=== PATIENT | female | born 1950 ===

== ENCOUNTER 2016-07-25 09:42 | Observation (INO) | payer OTHER ==
[~2016-07-25] VITALS: Ht 167.6 cm; Wt 89.3 kg
[~2016-07-25 09:42] MED LIST: ALBUAER2 INH; FLUT0.0529 NAE; MECL1TAB40 PO; PANT40TA PO; RANI300T2 PO
[2016-07-25] MEDS ORDERED: PRLSR20 PO (10:12)
--- NOTE | 2016-07-25 11:05 | EMERGENCY ROOM VISIT NOTE ---
History Report prepared by Gilberto: Hu Mathew Under the Supervision of: Dr. Marco Quinteros D.O. First contact with patient: 10:42 Chief Complaint: CHEST PAIN Stated Complaint: CHEST PAIN, PAIN IN LEFT ARM Nursing Triage Summary: pt reports cp that has been intermittent X 1 month , reports increased sob with exertion and BLE pain and swelling , pt states " I just feel more weak than is normal for me", denies NV pt denies cp at this time History of Present Illness The patient is a 65 year old female who presents to the Emergency Room with complaints of intermittent left-sided chest pain for the past month, which radiates to the left arm. The patient does not currently have the chest pain. She also complains of shortness of breath and currently has a headache. The patient notes that her left leg was swollen this morning. The patient denies any fevers or chills. The patient has not seen her PCP for the pain. The patient has a history of arthritis. She has had left knee surgery. The patient had a stress test some time ago. She denies any history of clots. Source of History: patient Onset: one month ago Position: chest (left) Quality: other (radiating to left arm) Timing: intermittent Associated Symptoms: + SOB, + headache, No chills, No fevers Review of Systems See HPI for pertinent positives & negatives. A total of 10 systems reviewed and were otherwise negative. Past Medical & Surgical Medical Problems: (1) Anemia (2) Anxiety State Nos (3) Asthma (4) GERD (gastroesophageal reflux disease) Surgical Problems: (1) H/O colonoscopy (2) H/O knee surgery (3) History of esophagogastroduodenoscopy (EGD) Family History Hypertension Kidney stone Social History Smoking Status: Never Smoker Alcohol Use: none Drug Use: none Marital Status: single Occupation Status: unemployed Current/Historical Medications Scheduled Omeprazole (Prilosec), 20 MG PO DAILY Allergies Coded Allergies: Celecoxib (Unverified Allergy, Mild, 07/25/16) Physical Exam Vital Signs Date Time Temp Pulse Resp B/P Pulse Ox O2 Delivery O2 Flow Rate FiO2 07/25/16 13:33 73 18 143/89 99 Room Air 07/25/16 12:23 36.5 71 16 130/96 98 Room Air 07/25/16 11:17 76 18 151/88 96 Room Air 07/25/16 09:58 85 07/25/16 09:57 36.5 81 17 151/88 97 Room Air Physical Exam GENERAL: Patient is awake, alert, and in no acute distress. Patient is resting comfortably and showing no signs of anxiety EYES: The conjunctivae are clear. The pupils are round and reactive. EARS, NOSE, MOUTH AND THROAT: The nose is without any evidence of any deformity. Mucous membranes are moist tongue is midline NECK: The neck is nontender and supple. RESPIRATORY: Normal respiratory effort is noted there is no evidence of wheezing rhonchi or rales CARDIOVASCULAR: Regular rate and rhythm noted there no murmurs rubs or gallops normal S1 normal S2 GASTROINTESTINAL: The abdomen is soft. Bowel sounds are present in all quadrants. Abdomen is nontender MUSCULOSKELETAL/EXTREMITIES: There is no evidence of gross deformity full range of motion is noted in the hips and shoulders SKIN: There is no obvious evidence of any rash. There are no petechiae, pallor or cyanosis noted. Trace pedal edema bilaterally, tenderness to the left calf. NEUROLOGIC: Patient is awake alert and oriented x3. Medical Decision & Procedures ER Provider Diagnostic Interpretation: Radiology results as stated below per my review and radiologist interpretation: CHEST ONE VIEW PORTABLE CLINICAL HISTORY: EVALUATE RESPIRATORY DISTRESS. DYSPNEA chest pain COMPARISON STUDY: 12/13/2014 FINDINGS: Fixed hiatal hernia. Lungs are clear. Diaphragms smooth. IMPRESSION: No acute process. Small hiatal hernia. Electronically signed by: Bg Cain M.D. 07/25/2016 11:27 AM Dictated Date/Time: 07/25/2016 11:[address] ANGIOGRAPHY OF THE CHEST, PULMONARY EMBOLUS PROTOCOL CLINICAL HISTORY: Chest pain and shortness of breath. Left arm pain. COMPARISON STUDY: Chest CT October 10, 2007 Chest radiograph July 25, 2016. TECHNIQUE: Following IV administration of 112 mL of Optiray-320, helical axial images of the chest were obtained utilizing the pulmonary embolus protocol. Maximal intensity projections and sagittal and coronal reformats were viewed on an independent 3D workstation. IV contrast was administered without complication. CT DOSE: 490.58 mGycm FINDINGS: No pulmonary emboli are identified. There is no evidence of thoracic aortic dissection. The size of the heart is normal. There is a moderate to large hiatal hernia. There is a partially intrathoracic stomach. Central airways are patent. No pneumothorax or pleural effusion is present. A 5 mm left upper lobe nodule shown on image 126 of 238 is unchanged since prior exams. An 8 mm tubular density within the left upper lobe shown on image 116 has minimally increased in size since prior exam. This could reflect a mucoid impacted bronchus. No consolidation is identified to suggest pneumonia. There is no pneumothorax or pleural effusion. The bony thorax and upper abdomen are unremarkable. IMPRESSION: 1. No pulmonary emboli identified. 2. No acute intrathoracic findings. 3. Moderate to large hiatal hernia. 4. 8 mm tubular density within the left upper lobe which is only minimally increased in size since prior exams. This likely reflects a mucoid impacted bronchus although a follow-up chest CT in 6 months is recommended to ensure stability. ULTRASOUND VENOUS DOPPLER LWR EXT BILA CLINICAL HISTORY: Lower extremity swelling COMPARISON STUDY: No previous studies for comparison. FINDINGS: Real-time and color flow Doppler imaging were performed. Flow was seen within the femoral, popliteal and calf veins with no intraluminal thrombus demonstrated. The saphenous vein is patent. IMPRESSION: No evidence of lower extremity DVT. Electronically signed by: Allen Ngo M.D. 07/25/2016 1:03 PM Dictated Date/Time: 07/25/2016 1:02 PM Laboratory Results Test 07/25/16 10:00 07/25/16 11:11 07/25/16 12:20 Immature Granulocyte % (Auto) 0.2 % White Blood Count 5.45 K/uL (4.8-10.8) Red Blood Count 4.35 M/uL (4.2-5.4) Hemoglobin 10.2 g/dL (12.0-16.0) Hematocrit 32.2 % (37-47) Mean Corpuscular Volume 74.0 fL (80-100) Mean Corpuscular Hemoglobin 23.4 pg (25-34) Mean Corpuscular Hemoglobin Concent 31.7 g/dl (32-36) Platelet Count 303 K/uL (130-400) Mean Platelet Volume 10.0 fL (7.4-10.4) Neutrophils (%) (Auto) 53.4 % Lymphocytes (%) (Auto) 37.2 % Monocytes (%) (Auto) 7.5 % Eosinophils (%) (Auto) 1.1 % Basophils (%) (Auto) 0.6 % Neutrophils # (Auto) 2.91 K/uL (1.4-6.5) Lymphocytes # (Auto) 2.03 K/uL (1.2-3.4) Monocytes # (Auto) 0.41 K/uL (0.11-0.59) Eosinophils # (Auto) 0.06 K/uL (0-0.5) Basophils # (Auto) 0.03 K/uL (0-0.2) Immature Granulocyte # (Auto) 0.01 K/uL (0.00-0.02) Red Blood Cell Morphology Unremarkable Prothrombin Time 10.3 SECONDS (9.0-12.0) Prothromb Time International Ratio 1.0 (0.9-1.1) Activated Partial Thromboplast Time 24.2 SECONDS (21.0-31.0) Partial Thromboplastin Ratio 0.9 Total Bilirubin 0.3 mg/dl (0.2-1) Aspartate Amino Transf (AST/SGOT) 15 U/L (15-37) Alanine Aminotransferase (ALT/SGPT) 18 U/L (12-78) Alkaline Phosphatase 126 U/L (45-117) Total Protein 7.7 gm/dl (6.4-8.2) Albumin 3.1 gm/dl (3.4-5.0) Globulin 4.6 gm/dl (2.5-4.0) Albumin/Globulin Ratio 0.7 (0.9-2) Bedside D-Dimer > 450 ng/mlFEU (0-450) Bedside Troponin I 0.000 ng/ml (0-0.045) Urine Color YELLOW Urine Appearance CLEAR (CLEAR) Urine pH 7.0 (4.5-7.5) Urine Specific [place] 1.014 (1.000-1.030) Urine Protein NEG (NEG) Urine Glucose (UA) NEG (NEG) Urine Ketones NEG (NEG) Urine Occult Blood 1+ (NEG) Urine Nitrite NEG (NEG) Urine Bilirubin NEG (NEG) Urine Urobilinogen NEG (NEG) Urine Leukocyte Esterase NEG (NEG) Urine WBC (Auto) 0 /hpf (0-5) Urine RBC (Auto) 5-10 /hpf (0-4) Urine Hyaline Casts (Auto) 0 /lpf (0-5) Urine Epithelial Cells (Auto) 5-10 /lpf (0-5) Urine Bacteria (Auto) NEG (NEG) Laboratory results per my review. ECG Indication: chest pain Rate (beats per minute): 85 Rhythm: normal sinus Findings: ST depression (Lateral), no ectopy Change: Changes are new compared to December 13, 2014. ED Course 1100: The patient was evaluated in room A10. A complete history and physical examination were performed. 1420: Discuss[facility] the case with [facility] The patient will be evaluated. 1422L Updated the patient. They verbalized understanding and agreement. Medical Decision Prior records/ancillary studies reviewed. Triage Nursing notes reviewed. Additional history obtained from father. The patient's history was concerning for chest pain. Differential diagnosis: Etiologies such as cardiac ischemia, aortic dissection, pulmonary embolism, pneumonia, pneumothorax, musculoskeletal, infections, pericarditis, myocarditis , esophageal rupture, gastrointestinal, as well as others were entertained. The patient is a 65-year-old female who presented to the emergency department for an evaluation of chest pain. The patient had left-sided chest pain which was somewhat worsened with exertion. She also had exertional dyspnea. The patient's EKG did show some nonspecific abnormalities compared to previous. She also had left calf pain but she was not found have signs of thromboembolic disease on ultrasound or CAT scan of the chest. I discussed the patient's laboratory and radiographic studies with him. Given her description of her pain as well as her risk factors I do feel that she could be at risk for coronary artery disease. For this reason I discussed her case with the on-call [facility] group. They have agreed to evaluate the patient in the emergency department for further management and disposition. Consults Time Called: 1410 Consulting Physician: Shante Steeel [facility]C, [facility] Returned Call: 1420 1420: Discussed the case with Shante Steele [facility]C, [facility]. The patient will be evaluated. Impression Primary Impression: Left sided chest pain Additional Impression: Abnormal EKG Scribe Attestation The scribe's documentation has been prepared under my direction and personally reviewed by me in its entirety. I confirm that the note above accurately reflects all work, treatment, procedures, and medical decision making performed by me. Departure Information Dispostion Being Evaluated By Hospitalist Referrals Marlin Rubin PA-C (PCP) Patient Instructions My [facility] Problem Qualifiers
[2016-07-25 11:10] LABS: BASO % 0.6 %; BASO ABS # 0.03 K/uL (0-0.2); EOS % 1.1 %; HEMATOCRIT 32.2 % (37-47); IG% 0.2 %; LYMPH % 37.2 %; LYMPH ABS # 2.03 K/uL (1.2-3.4); MEAN CORPUSCULAR HEMOGLOBIN 23.4 pg (25-34); MEAN CORPUSCULAR HGB CONC 31.7 g/dl (32-36); MONO % 7.5 %; NEUT % 53.4 %; PLATELET COUNT 303 K/uL (130-400); RED BLOOD COUNT 4.35 M/uL (4.2-5.4); WHITE BLOOD COUNT 5.45 K/uL (4.8-10.8)
[2016-07-25 11:17] LABS: BUN/CREATININE RATIO 12.7 (10-20); CALCIUM 8.8 mg/dl (8.5-10.1); CREATININE 0.81 mg/dl (0.60-1.20); POTASSIUM 3.6 mmol/L (3.5-5.1)
[2016-07-25 11:21] LABS: PARTIAL THROMBOPLASTIN RATIO 0.9; PROTHROMBIN TIME (PATIENT) 10.3 SECONDS (9.0-12.0)
[2016-07-25 11:22] LABS: ALB/GLOB RATIO 0.7 (0.9-2); CKMB/CK RATIO 0.8 (0-3.0)
[2016-07-25 11:28] LABS: COMPLETE YES
--- NOTE | 2016-07-25 11:29 | DIAGNOSTIC IMAGING REPORT ---
CHEST ONE VIEW PORTABLE CLINICAL HISTORY: EVALUATE RESPIRATORY DISTRESS. DYSPNEA chest pain COMPARISON STUDY: 12/13/2014 FINDINGS: Fixed hiatal hernia. Lungs are clear. Diaphragms smooth. IMPRESSION: No acute process. Small hiatal hernia. Electronically signed by: Bg Cain M.D. 07/25/2016 11:27 AM Dictated Date/Time: 07/25/2016 11:27 AM
[2016-07-25 12:38] LABS: URINE APPEARANCE CLEAR (CLEAR); URINE BILIRUBIN NEG (NEG); URINE COLOR YELLOW; URINE NITRITE NEG (NEG); URINE SPECIFIC GRAVITY 1.014 (1.000-1.030); UROBILINOGEN NEG (NEG)
[2016-07-25 12:43] LABS: MANUAL MICROSCOPIC REQUIRED? NO; REVIEW REQ? NO
--- NOTE | 2016-07-25 13:04 | DIAGNOSTIC IMAGING REPORT ---
ULTRASOUND VENOUS DOPPLER LWR EXT BILA CLINICAL HISTORY: Lower extremity swelling COMPARISON STUDY: No previous studies for comparison. FINDINGS: Real-time and color flow Doppler imaging were performed. Flow was seen within the femoral, popliteal and calf veins with no intraluminal thrombus demonstrated. The saphenous vein is patent. IMPRESSION: No evidence of lower extremity DVT. Electronically signed by: Allen Ngo M.D. 07/25/2016 1:03 PM Dictated Date/Time: 07/25/2016 1:02 PM
[2016-07-25] MEDS ORDERED: OPTIRAY 320 IV PRN (13:30)
--- NOTE | 2016-07-25 14:02 | DIAGNOSTIC IMAGING REPORT ---
CT ANGIOGRAPHY OF THE CHEST, PULMONARY EMBOLUS PROTOCOL CLINICAL HISTORY: Chest pain and shortness of breath. Left arm pain. COMPARISON STUDY: Chest CT October 10, 2007 Chest radiograph July 25, 2016. TECHNIQUE: Following IV administration of 112 mL of Optiray-320, helical axial images of the chest were obtained utilizing the pulmonary embolus protocol. Maximal intensity projections and sagittal and coronal reformats were viewed on an independent 3D workstation. IV contrast was administered without complication. CT DOSE: 490.58 mGycm FINDINGS: No pulmonary emboli are identified. There is no evidence of thoracic aortic dissection. The size of the heart is normal. There is a moderate to large hiatal hernia. There is a partially intrathoracic stomach. Central airways are patent. No pneumothorax or pleural effusion is present. A 5 mm left upper lobe nodule shown on image 126 of 238 is unchanged since prior exams. An 8 mm tubular density within the left upper lobe shown on image 116 has minimally increased in size since prior exam. This could reflect a mucoid impacted bronchus. No consolidation is identified to suggest pneumonia. There is no pneumothorax or pleural effusion. The bony thorax and upper abdomen are unremarkable. IMPRESSION: 1. No pulmonary emboli identified. 2. No acute intrathoracic findings. 3. Moderate to large hiatal hernia. 4. 8 mm tubular density within the left upper lobe which is only minimally increased in size since prior exams. This likely reflects a mucoid impacted bronchus although a follow-up chest CT in 6 months is recommended to ensure stability. Electronically signed by: Noah Perla M.D. 07/25/2016 2:00 PM Dictated Date/Time: 07/25/2016 1:52 PM
[2016-07-25] MEDS ORDERED: NITROGLYCERIN 0.4 MG SL PER TAB CHARGE SL PRN (15:00)
[2016-07-25] MEDS ORDERED: ONDANSETRON INJ 2 MG/ML 2 ML VIAL IV PRN (15:00)
[2016-07-25] MEDS ORDERED: ACETAMINOPHEN 325 MG TAB PO PRN (15:00)
[2016-07-25] MEDS ORDERED: ASPIRIN 81 MG CHEW PO STA (15:10)
--- NOTE | 2016-07-25 15:16 | History and Physical ---
History & Physical Date & Time of Service: Jul 25, 2016 at 15:05 Chief Complaint: Chest Pain, Pain In Left Arm Primary Care Physician: Marlin Rubin PA-C History of Present Illness Source: patient, clinic records, hospital records Patient seen and examined. 65 year old female with PMHx of GERD, Anemia, and other problems listed below presents to the ED complaining of chest pain x 1 month. History is somewhat unclear but patient states she gets some pain in her left arm at night with radiation into the chest. She states she sleeps on her left side so she is not sure if that is what causes it. She states she also has some SOB, and orthopnea. She reports calf pain and that she had peripheral edema a few weeks ago. She reports she came to the ED today because her family bugged her too, she denies any new symptoms today. She denies fevers, chills, URI symptoms, palpitations, nausea, vomiting, diarrhea, dysuria. She reports an allergy to Celebrex which she states she felt like it made her dehydrated, she denies anaphylactic reaction to Celebrex. She states she has never previously taken aspirin. She reports her mother had heart problems beginning in her 80s. She personally denies any heart problems. In the ED VS are stable, Rafaela are negative x 1, EKG was nonspecific, Ddimer was elevated by CTA chest and doppler US BLLE were negative for acute abnormalities. The patient is resting comfortably without chest pain. She will be observed for further workup and treatment. Past Medical/Surgical History Medical Problems: (1) Anemia Status: Chronic (2) Anxiety State Nos Status: Chronic (3) Asthma Status: Chronic (4) GERD (gastroesophageal reflux disease) Status: Chronic Surgical Problems: (1) H/O colonoscopy Status: Chronic (2) H/O knee surgery Status: Chronic (3) History of esophagogastroduodenoscopy (EGD) Status: Chronic Family History Hypertension Kidney stone Social History Smoking Status: Never Smoker Alcohol Use: none Drug Use: none Marital Status: single Housing status: lives alone Occupational Status: unemployed Multi-Drug Resistant Organisms History of MDRO: No Allergies Coded Allergies: Celecoxib (Unverified Allergy, Mild, 07/25/16) Home Medications Scheduled Omeprazole (Prilosec), 20 MG PO DAILY Review of Systems See above for pertinent positives & negatives. A total of 10 systems reviewed and were otherwise negative. Physical Exam Vital Signs Date Time Temp Pulse Resp B/P Pulse Ox O2 Delivery O2 Flow Rate FiO2 07/25/16 13:33 73 18 143/89 99 Room Air 07/25/16 12:23 36.5 71 16 130/96 98 Room Air 07/25/16 11:17 76 18 151/88 96 Room Air 07/25/16 09:58 85 07/25/16 09:57 36.5 81 17 151/88 97 Room Air General Appearance: + pertinent finding (Pleasant WD/WN 65 year old female lying in bed in NAD ) Head: normocephalic, atraumatic Eyes: PERRL, EOMI, sclerae normal ENT: normal ENT inspection, hearing grossly normal, pharynx normal Neck: supple, no JVD, trachea midline Respiratory/Chest: chest non-tender, lungs clear, normal breath sounds, no respiratory distress, no accessory muscle use Cardiovascular: regular rate, rhythm, no gallop, no JVD, no murmur, normal peripheral pulses Abdomen/GI: normal bowel sounds, non tender, soft Back: normal inspection, no muscle spasm Extremities/Musculoskelatal: normal capillary refill, + calf tenderness (BL), + pedal edema (trace) Neurologic/Psych: alert, oriented x 3, + pertinent finding (no focal deficits ) Skin: normal color, warm/dry, no rash Lymphatic: no adenopathy Diagnostics Laboratory Results Results Past 24 Hours Test 07/25/16 10:00 07/25/16 11:11 07/25/16 12:20 Range/Units White Blood Count 5.45 4.8-10.8 K/uL Red Blood Count 4.35 4.2-5.4 M/uL Hemoglobin 10.2 12.0-16.0 g/dL Hematocrit 32.2 37-47 % Mean Corpuscular Volume 74.0 80-100 fL Mean Corpuscular Hemoglobin 23.4 25-34 pg Mean Corpuscular Hemoglobin Concent 31.7 32-36 g/dl Platelet Count 303 130-400 K/uL Mean Platelet Volume 10.0 7.4-10.4 fL Neutrophils (%) (Auto) 53.4 % Lymphocytes (%) (Auto) 37.2 % Monocytes (%) (Auto) 7.5 % Eosinophils (%) (Auto) 1.1 % Basophils (%) (Auto) 0.6 % Neutrophils # (Auto) 2.91 1.4-6.5 K/uL Lymphocytes # (Auto) 2.03 1.2-3.4 K/uL Monocytes # (Auto) 0.41 0.11-0.59 K/uL Eosinophils # (Auto) 0.06 0-0.5 K/uL Basophils # (Auto) 0.03 0-0.2 K/uL RDW Standard Deviation 40.0 36.4-46.3 fL RDW Coefficient of Variation 14.8 11.5-14.5 % Immature Granulocyte % (Auto) 0.2 % Immature Granulocyte # (Auto) 0.01 0.00-0.02 K/uL Red Blood Cell Morphology Unremarkable Prothrombin Time 10.3 9.0-12.0 SECONDS Prothromb Time International Ratio 1.0 0.9-1.1 Activated Partial Thromboplast Time 24.2 21.0-31.0 SECONDS Partial Thromboplastin Ratio 0.9 Sodium Level 141 136-145 mmol/L Potassium Level 3.6 3.5-5.1 mmol/L Chloride Level 105 98-107 mmol/L Carbon Dioxide Level 28 21-32 mmol/L Anion Gap 8.0 3-11 mmol/L Blood Urea Nitrogen 10 7-18 mg/dl Creatinine 0.81 0.60-1.20 mg/dl Est Creatinine Clear Calc Drug Dose 79.9 ml/min Estimated GFR () 88.3 Estimated GFR (Non- 76.2 BUN/Creatinine Ratio 12.7 10-20 Random Glucose 108 70-99 mg/dl Calcium Level 8.8 8.5-10.1 mg/dl Total Bilirubin 0.3 0.2-1 mg/dl Aspartate Amino Transf (AST/SGOT) 15 15-37 U/L Alanine Aminotransferase (ALT/SGPT) 18 12-78 U/L Alkaline Phosphatase 126 45-117 U/L Total Creatine Kinase 159 26-192 U/L Creatine Kinase MB 1.3 0.5-3.6 ng/ml Creatine Kinase MB Ratio 0.8 0-3.0 Total Protein 7.7 6.4-8.2 gm/dl Albumin 3.1 3.4-5.0 gm/dl Globulin 4.6 2.5-4.0 gm/dl Albumin/Globulin Ratio 0.7 0.9-2 Bedside D-Dimer > 450 0-450 ng/mlFEU Bedside Troponin I 0.000 0-0.045 ng/ml Urine Color YELLOW Urine Appearance CLEAR CLEAR Urine pH 7.0 4.5-7.5 Urine Specific [place] 1.014 1.000-1.030 Urine Protein NEG NEG Urine Glucose (UA) NEG NEG Urine Ketones NEG NEG Urine Occult Blood 1+ NEG Urine Nitrite NEG NEG Urine Bilirubin NEG NEG Urine Urobilinogen NEG NEG Urine Leukocyte Esterase NEG NEG Urine WBC (Auto) 0 0-5 /hpf Urine RBC (Auto) 5-10 0-4 /hpf Urine Hyaline Casts (Auto) 0 0-5 /lpf Urine Epithelial Cells (Auto) 5-10 0-5 /lpf Urine Bacteria (Auto) NEG NEG Diagnostic Radiology CTA CHEST Per radiologist read: IMPRESSION: 1. No pulmonary emboli identified. 2. No acute intrathoracic findings. 3. Moderate to large hiatal hernia. 4. 8 mm tubular density within the left upper lobe which is only minimally increased in size since prior exams. This likely reflects a mucoid impacted bronchus although a follow-up chest CT in 6 months is recommended to ensure stability. CXR Per radiologist read: IMPRESSION: No acute process. Small hiatal hernia. BLLE DOPPLER US Per radiologist read: IMPRESSION: No evidence of lower extremity DVT. EKG NSR 85 BPM, QTc 418, nonspecific T wave changes Impression Assessment and Plan 65 year old female presents to the ED with a month of chest pain, SOB CHEST PAIN R/O ACS -Observation in tele -First set of CE negative in ED -Risk factors:age, obesity -Serial Rafaela and EKGs -Fasting lipid panel in AM -Echo pending to r/o heart wall abnormality -ASA daily - states her Celebrex allergy is feeling like she is dehydrated, has never taken Aspirin previously -Nitro chest pain -Add Atorvastatin 40mg daily for plaque stabilization -stress test in AM if workup negative -AHA diet npo aftermidnight for stress test -CBC, PRP, Mg daily -VSS stable, monitor in tele ELEVATED DDIMER -Doppler US, and CTA chest negative GERD -continue PPI ANEMIA -hgb stable -follow H&H daily LUNG TUBULAR DENSITY -patient reports she had CT scans every 6 months for many years, none recently -followup with PCP DVT PROPHYLAXIS: Sq Lovenox CODE STATUS: FULL CODE DISPO:observation pending further workup Patient seen in collaboration with Dr. Yip Agree with above H and P.65f presents with left arm pain radiating to left chest for about a month. Lately getting worse.Comes goes anytime.Denies cough. No sob. No fevers. No sweating.HAs some calf pain . Also complains of generalized weakness and muscle pains. p/e Ge not in distress Cvs s1 and s2 heard no murmurs Rs cta b/l no added sounds Abd benign Stoner Hand non focal Ext pedal edema present a/p Chest pain rule out acs serial CE and echo Generalized weakness lower extremity edema follow echo follow tsh levels VTE Prophylaxis VTE Risk Assessment Done? Y/N: Yes Risk Level: Moderate
[2016-07-25] MEDS ORDERED: IV FLUIDS COMPLETED PRN (16:30)
[2016-07-25 16:37] LABS: CKMB/CK RATIO 0.8 (0-3.0)
[2016-07-25] MEDS: ATORVASTATIN 40 MG TAB PO ONE ×2 (17:00→19:02)
[2016-07-25 17:21] VITALS: BP 141/72; PULSE 81; TEMP 36.6; Ht 167.6 cm; Wt 89.3 kg
[2016-07-25 17:23] VITALS: O2SAT 95
[2016-07-25] MEDS: ENOXAPARIN 40 MG/0.4 ML SYR SC SCH ×2 (19:02→19:11)
[2016-07-25 19:39] VITALS: BP 151/81; PULSE 86; TEMP 36.6; O2SAT 98
[2016-07-25 20:15] VITALS: O2SAT 98
[2016-07-25 23:20] VITALS: TEMP 36.6
[2016-07-25 23:20] LABS: CKMB/CK RATIO 0.9 (0-3.0)
[2016-07-26 05:17] VITALS: BP 117/72; PULSE 78; TEMP 36.2; O2SAT 96
[2016-07-26 06:59] LABS: HEMATOCRIT 32.4 % (37-47); MEAN CELL VOLUME 73.8 fL (80-100); MEAN CORPUSCULAR HEMOGLOBIN 23.2 pg (25-34); MEAN CORPUSCULAR HGB CONC 31.5 g/dl (32-36); MEAN PLATELET VOLUME 9.5 fL (7.4-10.4); PLATELET COUNT 284 K/uL (130-400); RED BLOOD COUNT 4.39 M/uL (4.2-5.4); WHITE BLOOD COUNT 6.22 K/uL (4.8-10.8)
[2016-07-26 07:30] LABS: BUN/CREATININE RATIO 12.8 (10-20); CALCIUM 8.9 mg/dl (8.5-10.1); CREATININE 0.85 mg/dl (0.60-1.20); MAGNESIUM 2.1 mg/dl (1.8-2.4); POTASSIUM 3.9 mmol/L (3.5-5.1)
[2016-07-26 07:40] LABS: THYROID STIMULATING HORMONE 2.56 uIu/ml (0.300-4.500)
[2016-07-26 07:51] VITALS: BP 129/79; PULSE 75; TEMP 36.6; O2SAT 96
[2016-07-26] MEDS ORDERED: ATORVASTATIN 40 MG TAB PO SCH (09:00)
[2016-07-26] MEDS ORDERED: ASPIRIN 81 MG ECTAB PO SCH (09:00)
[2016-07-26] MEDS ORDERED: PANTOprazole SOD 40 MG TAB PO SCH (09:00)
[2016-07-26] MEDS ORDERED: METOPROLOL TARTRATE 1 MG/ML VIAL ONE (11:24)
[2016-07-26] MEDS ORDERED: DOBUTamine HCL 12.5 MG/ML 20 ML VIAL ONE (11:24)
[2016-07-26] MEDS ORDERED: ATROPINE SULFATE 0.1 MG/ML 5ML SYR ONE (11:24)
[2016-07-26] MEDS ORDERED: PERFLUTREN LIPID MICROSPHERE (DEFINITY) IV ONE (12:21)
[2016-07-26 12:45] VITALS: BP 138/82; PULSE 83; TEMP 36.3; O2SAT 93
[2016-07-26 15:09] VITALS: BP 146/76; PULSE 87; TEMP 36.4; O2SAT 96
--- NOTE | 2016-07-26 15:23 | Discharge Instructions ---
Discharge Instructions Admission Reason for Admission: Left Sided Chest Pain Discharge Discharge Diagnosis / Problem: Atypical chest pain Discharge Goals Goal(s): Diagnostic testing Activity Recommendations Activity Limitations: resume your previous activity . Instructions / Follow-Up Instructions / Follow-Up Please follow up with Family Medicine Dr. Domínguez on August 01 at 3:10pm. Current Hospital Diet Patient's current hospital diet: AHA Diet (Heart Healthy) Discharge Diet Recommended Diet: AHA Diet (Heart Healthy) Procedures Procedures Performed: Dobutamine stress echo Pending Studies Studies pending at discharge: no Laboratory Results Lipid Panel Test 07/26/16 06:22 Range/Units Triglycerides Level 112 0-150 mg/dl Cholesterol Level 191 0-200 mg/dl HDL Cholesterol 64 mg/dl Cholesterol/HDL Ratio 3.0 LDL Cholesterol, Calculated 105 mg/dl Medical Emergencies . Who to Call and When: Medical Emergencies: If at any time you feel your situation is an emergency, please call 911 immediately. . Non-Emergent Contact Non-Emergency issues call your: Primary Care Provider . . "Provider Documentation" section prepared by Ronna Krishnamurthy. VTE Core Measure Inpt VTE Proph given/why not?: Refusal of treatmnt by pt
[2016-07-26 15:30] VITALS: BP 146/76; PULSE 87; TEMP 36.4; O2SAT 96
--- NOTE | 2016-07-26 16:50 | DOBUTAMINE ECHO ---
*NOTICE TO RECEIVING CONSTITUTION PARTY AGENCY This information is strictly Confidential and protected under [place] law. [place] law prohibits you from making any further disclosure of this information unless further disclosure is expressly permitted by the written consent of the person to whom it pertains or is authorized by law. A general authorization for the release of medical or other information is not sufficient for this purpose. Hospital accepts no responsibility if the information is made available to any other person, INCLUDING THE PATIENT. Interpretation Summary * Name: JAMARI MARTINEZ Study Date: 07/26/2016 10:43 AM BP: 144/73 mmHg * Patient Location: [facility] HR: 74 * : 1950 (M/d/yyyy) Gender: Female Height: 65 in * Age: 65 yrs Ethnicity: DC Weight: 207 lb * Ordering Physician: Shante Steele * Performed By: Fernanda Andrews * * Reason For Study: Chest Pain * BSA: 2.0 m2 * -- Conclusions -- * STRESS STUDY: * Normal pharmacologic stress echocardiogram. * No echocardiographic or ECG evidence of myocardial ischemia having achieved heart rate adequate for diagnostic purposes. * RESTING STUDY: * There is no significant valvular heart disease. * There is mild concentric left ventricular hypertrophy. Procedure Details * ECHOEX, CPT #06829 * ECHO DOPPLER, CPT #64816 * ECHO COLOR FLOW, CPT #30979 * A contrast injection of Definity was performed to improve assessment of LV function. * Contrast was injected into an intravenous site in the right arm. * One vial of Definity ultrasound contrast was diluted in normal saline to a total volume of 10 ml. A total of '7' ml of solution was administered during imaging. * Lot # [id number] of Definity utilized for procedure. * Expiration date 07/22. * The attending nurse who injected the contrast agent was UTE WAY RN. Left Ventricle * The left ventricle is normal in size. * There is mild concentric left ventricular hypertrophy. * Left ventricular systolic function is normal. * Ejection Fraction = 60-65%. * Resting wall motion: Normal. Stress wall motion: Appropriate increase in Left ventricular systolic function and decrease in cavity size. No stress induced segmental wall motion abnormalities. Right Ventricle * The right ventricle is normal in size and function. Atria * The left atrial size is normal. * Right atrial size is normal. * No ASD detected; PFO is not assessed. Mitral Valve * The mitral valve is normal. * There is no mitral valve stenosis. * There is trace mitral regurgitation. Tricuspid Valve * The tricuspid valve is normal. * There is no tricuspid stenosis. * There is trace tricuspid regurgitation. Aortic Valve * The aortic valve is trileaflet. * No hemodynamically significant valvular aortic stenosis. * No aortic regurgitation is present. Pulmonic Valve * The pulmonic valve is not well visualized. Great Vessels * The aortic root is normal size. Pericardium * There is no pericardial effusion. Stress Parameters * Normal baseline electrocardiogram. * The stress ECG response was normal * The stress portion of this study was personally supervised by the undersigned interpreting physician. * Rest heart rate was '74' BPM. * Rest blood pressure was '144/73' * Maximum heart rate achieved was 148 bpm. * Maximum heart rate was 95 % of maximum age-predicted heart rate. * Maximum blood pressure was '178/85' * Total exercise time was '8:29' * Maximum Dobutamine infusion rate was '20' mcg/kg/min. * A total of 0.25 mg of intravenous Atropine was used to supplement Dobutamine for heart rate response. * Dobutamine infusion was terminated due to achieving target heart rate * A total of 5 mg of IV Metoprolol was administered to reverse Dobutamine-induced tachycardia. * The patient exhibited headache during the drug infusion. * Normal blood pressure response to exercise. * Test terminated due to target heart rate achieved. Left Ventricular Diastolic Function * Grade I diastolic dysfunction, (abnormal relaxation pattern). MMode 2D Measurements and Calculations IVSd 1.2 cm IVSs 1.9 cm LVIDd 2.9 cm LVIDs 1.9 cm LVPWd 1.3 cm LVPWs 1.9 cm IVS/LVPW 0.94 FS 36.9 % EDV(Teich) 33.3 ml ESV(Teich) 10.5 ml EF(Teich) 68.5 % EDV(cubed) 25.4 ml ESV(cubed) 6.4 ml EF(cubed) 74.9 % % IVS thick 55.8 % % LVPW thick 40.3 % LV mass(C)d 119.2 grams LV mass(C)dI 59.4 grams/m\S\2 LV mass(C)s 146.5 grams LV mass(C)sI 73.0 grams/m\S\2 CO(Teich) 1.7 l/min CI(Teich) 0.84 l/min/m\S\2 SV(Teich) 22.8 ml SI(Teich) 11.4 ml/m\S\2 CO(cubed) 1.4 l/min CI(cubed) 0.70 l/min/m\S\2 SV(cubed) 19.0 ml SI(cubed) 9.5 ml/m\S\2 ACS 1.1 cm LA dimension 3.2 cm asc Aorta Diam 3.0 cm LVOT diam 1.8 cm LVOT area 2.5 cm\S\2 LVAd ap4 22.9 cm\S\2 LVLd ap4 7.9 cm EDV(MOD-sp4) 55.5 ml LVAs ap4 10.2 cm\S\2 LVLs ap4 5.5 cm ESV(MOD-sp4) 15.9 ml EF(MOD-sp4) 71.4 % LVAd ap2 20.6 cm\S\2 LVLd ap2 7.5 cm EDV(MOD-sp2) 47.7 ml LVAs ap2 8.6 cm\S\2 LVLs ap2 5.0 cm ESV(MOD-sp2) 13.1 ml EF(MOD-sp2) 72.5 % CO(MOD-sp4) 2.9 l/min CI(MOD-sp4) 1.5 l/min/m\S\2 SV(MOD-sp4) 39.6 ml SI(MOD-sp4) 19.7 ml/m\S\2 CO(MOD-sp2) 2.6 l/min CI(MOD-sp2) 1.3 l/min/m\S\2 SV(MOD-sp2) 34.6 ml SI(MOD-sp2) 17.2 ml/m\S\2 Doppler Measurements and Calculations MV E max carmel 88.8 cm/sec MV A max carmel 114.0 cm/sec MV E/A 0.78 MV V2 max 119.3 cm/sec MV max PG 5.7 mmHg MV V2 mean 65.9 cm/sec MV mean PG 2.0 mmHg MV V2 VTI 27.9 cm MV dec time 0.25 sec Ao V2 max 141.6 cm/sec Ao max PG 8.0 mmHg Ao max PG (full) 4.3 mmHg DANIELLE(V,A) 1.7 cm\S\2 DANIELLE(V,D) 1.7 cm\S\2 LV V1 max PG 3.8 mmHg LV V1 max 97.0 cm/sec PA V2 max 88.8 cm/sec PA max PG 3.2 mmHg PI end-d carmel 96.0 cm/sec
--- NOTE | 2016-07-26 19:54 | Discharge Summary ---
Discharge Summary Date of Service Jul 26, 2016. Discharge Summary Admission Date: Jul 25, 2016 at 14:59 Discharge Date: Jul 26, 2016 Discharge Disposition: Home Principal Diagnosis: Atypical chest pain Procedures: Venous doppler No evidence of lower extremity DVT. CT chest 1. No pulmonary emboli identified. 2. No acute intrathoracic findings. 3. Moderate to large hiatal hernia. 4. 8 mm tubular density within the left upper lobe which is only minimally increased in size since prior exams. This likely reflects a mucoid impacted bronchus although a follow-up chest CT in 6 months is recommended to ensure stability. Dobutamine stress echo * STRESS STUDY: * Normal pharmacologic stress echocardiogram. * No echocardiographic or ECG evidence of myocardial ischemia having achieved heart rate adequate for diagnostic purposes. * RESTING STUDY: * There is no significant valvular heart disease. * There is mild concentric left ventricular hypertrophy. Medication Reconciliation Continued Medications: Omeprazole (Prilosec) 20 Mg Capcr 20 MG PO DAILY, CAP Admission Information HPI (per Admitting provider): Patient seen and examined. 65 year old female with PMHx of GERD, Anemia, and other problems listed below presents to the ED complaining of chest pain x 1 month. History is somewhat unclear but patient states she gets some pain in her left arm at night with radiation into the chest. She states she sleeps on her left side so she is not sure if that is what causes it. She states she also has some SOB, and orthopnea. She reports calf pain and that she had peripheral edema a few weeks ago. She reports she came to the ED today because her family bugged her too, she denies any new symptoms today. She denies fevers, chills, URI symptoms, palpitations, nausea, vomiting, diarrhea, dysuria. She reports an allergy to Celebrex which she states she felt like it made her dehydrated, she denies anaphylactic reaction to Celebrex. She states she has never previously taken aspirin. She reports her mother had heart problems beginning in her 80s. She personally denies any heart problems. In the ED VS are stable, Rafaela are negative x 1, EKG was nonspecific, Ddimer was elevated by CTA chest and doppler US BLLE were negative for acute abnormalities. The patient is resting comfortably without chest pain. She will be observed for further workup and treatment. Physical Exam (per Admitting): General Appearance: + pertinent finding (Pleasant WD/WN 65 year old female lying in bed in NAD ) Head: normocephalic, atraumatic Eyes: PERRL, EOMI, sclerae normal ENT: normal ENT inspection, hearing grossly normal, pharynx normal Neck: supple, no JVD, trachea midline Respiratory/Chest: chest non-tender, lungs clear, normal breath sounds, no respiratory distress, no accessory muscle use Cardiovascular: regular rate, rhythm, no gallop, no JVD, no murmur, normal peripheral pulses Abdomen/GI: normal bowel sounds, non tender, soft Back: normal inspection, no muscle spasm Extremities/Musculoskelatal: normal capillary refill, + calf tenderness (BL) , + pedal edema (trace) Neurologic/Psych: alert, oriented x 3, + pertinent finding (no focal deficits ) Skin: normal color, warm/dry, no rash Lymphatic: no adenopathy Hospital Course Patient was admitted with a month long h/o atypical chest pain. Due to elevated d-dimer on admission, venous doppler was done and negative for DVT and CT chest was done and was negative for PE. ACS r/o was negative. Dobutamine stress echo was negative. Echo did show mild concentric LVH. Cardiology recommended close monitoring of patient's outpatient blood pressure. Encouraged patient to adhere to heart healthy diet. Patient deemed stable for discharge with Family Medicine follow up. PE on discharge: General- awake; alert; NAD Eyes- EOMI; no scleral icterus Neck- no stridor; trachea midline Lungs- CTA bilaterally; no wheezes/crackles Heart- RRR; no m/r/g Abdomen- soft; NTND; nBS Back- no gross abnormalities Extremities- no c/c/e; no deformity Neuro- no gross focal deficits Skin- no appreciable rash . Total time spent on discharge = This includes examination of the patient, discharge planning, medication reconciliation, and communication with other providers. Discharge Instructions Discharge Instructions Admission Reason for Admission: Left Sided Chest Pain Discharge Discharge Diagnosis / Problem: Atypical chest pain Discharge Goals Goal(s): Diagnostic testing Activity Recommendations Activity Limitations: resume your previous activity . Instructions / Follow-Up Instructions / Follow-Up Please follow up with Family Medicine Dr. Domínguez on August 01 at 3:10pm. Current Hospital Diet Patient's current hospital diet: AHA Diet (Heart Healthy) Discharge Diet Recommended Diet: AHA Diet (Heart Healthy) Procedures Procedures Performed: Dobutamine stress echo Pending Studies Studies pending at discharge: no Laboratory Results Lipid Panel Test 07/26/16 06:22 Range/Units Triglycerides Level 112 0-150 mg/dl Cholesterol Level 191 0-200 mg/dl HDL Cholesterol 64 mg/dl Cholesterol/HDL Ratio 3.0 LDL Cholesterol, Calculated 105 mg/dl Medical Emergencies . Who to Call and When: Medical Emergencies: If at any time you feel your situation is an emergency, please call 911 immediately. . Non-Emergent Contact Non-Emergency issues call your: Primary Care Provider . . "Provider Documentation" section prepared by Ronna Krishnamurthy. VTE Core Measure Inpt VTE Proph given/why not?: Refusal of treatmnt by pt Additional Copies To Marlin Rubin PA-C, Shane D., D.O.
[2017-01-15] MEDS ORDERED: FRRS300 PO (16:43)
== END 2016-07-26 15:45 | disposition home or self-care (01) ==
LOC: ENRESERVDT → ENRESERVTM → C.EDB 09:44 → C.MED 14:59
PROVIDERS: ADMIT Internal Medicine; ATTEND Internal Medicine
DX: R07.89 Other chest pain (principal); R53.1 Weakness; R79.89 Other specified abnormal findings of blood chemistry; R94.31 Abnormal electrocardiogram [ECG] [EKG]; K21.9 Gastro-esophageal reflux disease without esophagitis; D64.9 Anemia, unspecified; J45.909 Unspecified asthma, uncomplicated; E66.9 Obesity, unspecified; Z82.49 Family history of ischemic heart disease and other diseases of the circulatory system; Z84.1 Family history of disorders of kidney and ureter

== ENCOUNTER 2017-01-12 10:23 | Inpatient (IN) | payer OTHER ==
[~2017-01-12] VITALS: Ht 165.1 cm; Wt 88.0 kg
[2017-01-12] VITALS (8 sets, daily range): BP systolic 114–149; BP diastolic 68–84; PULSE 77–83; TEMP 36.4–36.9; O2SAT 96–98; Ht 165.1 cm; Wt 88.0 kg
[~2017-01-12 10:23] MED LIST changes: -ALBUAER2 INH; -FLUT0.0529 NAE; -MECL1TAB40 PO; -PANT40TA PO; +PRLSR20 PO; -RANI300T2 PO
[2017-01-12 11:29] LABS: ALT/SGPT 16 U/L (12-78); AST/SGOT 15 U/L (15-37); BLOOD UREA NITROGEN 9 mg/dl (7-18); BUN/CREATININE RATIO 11.1 (10-20); CALCIUM 9.1 mg/dl (8.5-10.1); CARBON DIOXIDE 27 mmol/L (21-32); CHLORIDE 107 mmol/L (98-107); CREATININE 0.83 mg/dl (0.60-1.20); GLUCOSE 112 mg/dl (70-99); POTASSIUM 3.6 mmol/L (3.5-5.1); SODIUM 140 mmol/L (136-145)
[2017-01-12 11:31] LABS: PROTHROMBIN TIME (PATIENT) 10.4 SECONDS (9.0-12.0)
[2017-01-12 11:32] LABS: ALKALINE PHOSPHATASE 115 U/L (45-117)
[2017-01-12 11:54] LABS: HEMATOCRIT 27.1 % (37-47); MEAN CELL VOLUME 68.8 fL (80-100); MEAN CORPUSCULAR HEMOGLOBIN 21.1 pg (25-34); MEAN CORPUSCULAR HGB CONC 30.6 g/dl (32-36); MEAN PLATELET VOLUME 8.7 fL (7.4-10.4); PLATELET COUNT 341 K/uL (130-400); RED BLOOD COUNT 3.94 M/uL (4.2-5.4); WHITE BLOOD COUNT 6.16 K/uL (4.8-10.8)
--- NOTE | 2017-01-12 11:54 | DIAGNOSTIC IMAGING REPORT ---
CHEST 2 VIEWS ROUTINE HISTORY: 66 years-old Female acute shortness of breath and lightheadedness. COMPARISON: Chest radiograph and chest CT 07/25/2016 TECHNIQUE: Frontal and lateral views of the chest FINDINGS: Small hiatal hernia with partially intrathoracic stomach is redemonstrated. Cardiac silhouette is within normal limits. There is atherosclerosis of the aorta. No pneumothorax, pleural effusion or focal airspace consolidation. The bones are grossly intact. There is mild convex left curvature of the lumbar spine. Multilevel endplate spurring is seen throughout the spine as well. IMPRESSION: 1. No acute cardiopulmonary process. No evidence of focal pneumonia. 2. Small hiatal hernia with partially intrathoracic stomach redemonstrated. The above report was generated using voice recognition software. It may contain grammatical, syntax or spelling errors. Electronically signed by: Ajay Echavarria M.D. 01/12/2017 11:52 AM Dictated Date/Time: 01/12/2017 11:50 AM
[2017-01-12 11:58] LABS: ANISOCYTOSIS PRESENT; BASO % 0.2 %; BASO ABS # 0.01 K/uL (0-0.2); COMPLETE YES; EOS % 1.1 %; IG% 0.3 %; LYMPH % 30.8 %; MICROCYTOSIS PRESENT; NEUT % 60.6 %
[2017-01-12] MEDS ORDERED: VNTHFA/IN INH (11:59)
[2017-01-12] MEDS ORDERED: FLNIN/ INH (12:01)
[2017-01-12] MEDS ORDERED: ONDANSETRON INJ 2 MG/ML 2 ML VIAL IV PRN (14:00)
[2017-01-12] MEDS ORDERED: ACETAMINOPHEN 325 MG TAB PO PRN (14:00)
[2017-01-12] MEDS ORDERED: ALBUTEROL HFA 8 GM INHALER INH PRN (14:15)
[2017-01-12] MEDS ORDERED: PANTOprazole INJ 40 MG in SYRINGE 0 ML IV ONE (14:15)
[2017-01-12] MEDS ORDERED: IV FLUIDS COMPLETED PRN (14:15)
--- NOTE | 2017-01-12 14:22 | History and Physical ---
History & Physical Date & Time of Service: Jan 12, 2017 at 14:03 Chief Complaint: Sob, Lightheaded, Anemia Primary Care Physician: Ciarra Brunson, History of Present Illness Source: patient, clinic records, hospital records 66 yo F with long-standing anemia symptoms, undergoing outpatient workup, who presents with worsening shortness of breath and muscle spasms in her legs as well as significant weakness. She states that she has had these symptoms for some time, including lightheadedness, but recently she became worse. Per record review her Hb trend has been 12/2014-12.5, 07/2016-10.2, 01/18-8.3. She denies any bleeding or bruising. Ferritin is very low and outpatient labwork reflects iron deficiency. She is scheduled for an outpatient endoscopy with Dr. Romna in Feb 2017, and has not taken the iron supplements as prescribed as she has been trying to eat more iron-rich foods instead. She admits to PICA symptoms including eating ice and rice recently. She admits to a h/o H pylori infection in the past. Recent H pylorii stool test was negative as outpatient. Her last UGI endoscopy was in Jun 2013 and revealed a normal esophagus, med sized HH, and erythematous mucosa in the stomach which was biopsied and was negative. She consistently takes omeprazol 20mg PO daily as outpatient for severe acid reflux. She reports symptoms of dysphagia in the past which have apparently resolved. She denies any weight loss or odynophagia. She was consented for blood in the Er and will get one unit. Otherwise, workup is negative including a normal CXR, EKG and negative troponin. ROS reveals symptoms as above and no fevers, chills, chest pain, vomiting, diarrhea, constipation, blood per rectum or vagina or bleeding/bruising. She does admit to some occasional nausea but has no pain after eating food. She also has some back pain in her upper shoulders which is intermittent with the way she is sitting today. Past Medical/Surgical History Medical Problems: (1) Anemia Status: Chronic (2) Anxiety State Nos Status: Chronic (3) Asthma Status: Chronic (4) GERD (gastroesophageal reflux disease) Status: Chronic Surgical Problems: (1) H/O colonoscopy Status: Chronic (2) H/O knee surgery Status: Chronic (3) History of esophagogastroduodenoscopy (EGD) Status: Chronic Family History FH: Alzheimers disease FATHER FH: CAD (coronary artery disease) MOTHER Hypertension Kidney stone Social History Smoking Status: Never Smoker Smokeless Tobacco Use: No Alcohol Use: none Drug Use: none Marital Status: single Housing status: lives alone Occupational Status: unemployed Immunizations History of Influenza Vaccine: Yes Influenza Vaccine Date: Mar 31, 2008 History of Tetanus Vaccine?: Yes Tetanus Immunization Date: Feb 24, 2014 History of Pneumococcal: No History of Hepatitis B Vaccine: No Multi-Drug Resistant Organisms History of MDRO: No Allergies Coded Allergies: Celecoxib (Unverified Allergy, Mild, 01/12/17) Home Medications Scheduled Omeprazole (Prilosec), 20 MG PO QAM Scheduled PRN Albuterol Hfa (Ventolin Hfa), 1-2 PUFFS INH for SOB/Wheezing Fluticasone Propionate (Fluticasone Propionate), 1 SPRAY INH UD PRN for DRYNESS Review of Systems At least ten systems reviewed and negative except as indicated in HPI. Physical Exam Vital Signs Date Time Temp Pulse Resp B/P (MAP) Pulse Ox O2 Delivery O2 Flow Rate FiO2 01/12/17 12:22 36.9 84 18 136/80 96 01/12/17 10:42 96 01/12/17 10:25 36.5 96 16 152/90 96 Room Air GEN: Obese, in no acute distress, alert and appropriate, no conversational dyspnea. HEENT: NC/AT, PERRL, normal sclerae, MMM, pharynx nonacute NECK: no LAD, trachea midline. CARDIO: reg rate, S1/2 heard without m/g/r LUNGS: CTA bilaterally, no crackles, rales or wheezes, good diaphragmatic excursion ABD: soft, non-tender, non-distended, no rebound or guarding, +BS EXTREMITY: RP and DP palpable 2+ bilat, no LE swelling or edema, extremities are warm and well-perfused NEURO: CN 2-12 grossly intact, no gross focal deficits. MUSC: 5/5 strength throughout, no focal deficits SKIN: warm and dry, pale Diagnostics Laboratory Results Results Past 24 Hours Test 01/12/17 10:55 01/12/17 11:20 Range/Units White Blood Count 6.16 4.8-10.8 K/uL Red Blood Count 3.94 4.2-5.4 M/uL Hemoglobin 8.3 12.0-16.0 g/dL Hematocrit 27.1 37-47 % Mean Corpuscular Volume 68.8 80-100 fL Mean Corpuscular Hemoglobin 21.1 25-34 pg Mean Corpuscular Hemoglobin Concent 30.6 32-36 g/dl Platelet Count 341 130-400 K/uL Mean Platelet Volume 8.7 7.4-10.4 fL Neutrophils (%) (Auto) 60.6 % Lymphocytes (%) (Auto) 30.8 % Monocytes (%) (Auto) 7.0 % Eosinophils (%) (Auto) 1.1 % Basophils (%) (Auto) 0.2 % Neutrophils # (Auto) 3.73 1.4-6.5 K/uL Lymphocytes # (Auto) 1.90 1.2-3.4 K/uL Monocytes # (Auto) 0.43 0.11-0.59 K/uL Eosinophils # (Auto) 0.07 0-0.5 K/uL Basophils # (Auto) 0.01 0-0.2 K/uL RDW Standard Deviation 43.9 36.4-46.3 fL RDW Coefficient of Variation 17.3 11.5-14.5 % Immature Granulocyte % (Auto) 0.3 % Immature Granulocyte # (Auto) 0.02 0.00-0.02 K/uL Anisocytosis PRESENT Microcytosis PRESENT Prothrombin Time 10.4 9.0-12.0 SECONDS Prothromb Time International Ratio 1.0 0.9-1.1 Activated Partial Thromboplast Time 25.4 21.0-31.0 SECONDS Partial Thromboplastin Ratio 1.0 Sodium Level 140 136-145 mmol/L Potassium Level 3.6 3.5-5.1 mmol/L Chloride Level 107 98-107 mmol/L Carbon Dioxide Level 27 21-32 mmol/L Anion Gap 6.0 3-11 mmol/L Blood Urea Nitrogen 9 7-18 mg/dl Creatinine 0.83 0.60-1.20 mg/dl Est Creatinine Clear Calc Drug Dose 73.0 ml/min Estimated GFR () 85.2 Estimated GFR (Non- 73.5 BUN/Creatinine Ratio 11.1 10-20 Random Glucose 112 70-99 mg/dl Calcium Level 9.1 8.5-10.1 mg/dl Total Bilirubin 0.2 0.2-1 mg/dl Direct Bilirubin < 0.1 0-0.2 mg/dl Aspartate Amino Transf (AST/SGOT) 15 15-37 U/L Alanine Aminotransferase (ALT/SGPT) 16 12-78 U/L Alkaline Phosphatase 115 45-117 U/L Total Protein 7.4 6.4-8.2 gm/dl Albumin 2.8 3.4-5.0 gm/dl Bedside Troponin I < 0.030 0-0.045 ng/ml CXR normal Normal EKG Impression Assessment and Plan 66 yo F presents with symptomatic anemia 1. Symptomatic anemia-lightheadedness, SOB with minimal exertion, leg cramps, nausea all consistent with anemia. Denies NSAID use at home, no h/o steroids and no h/o alcohol use. Has h/o H pylori in the past. Last EGD 2013 which was normal as above. Plan to transfuse one unit of blood now for symptomatic relief. GI consulted in setting of symptoms, PICA and severe iron deficiency. Consult is for consideration of endoscopy as inpatient. Protonix 40 BID. 2. Asthma-stable, controlled with PRN albuterol. 3. Anxiety-not on medications for this 4. Obesity 5. Hiatal hernia and severe GERD-cont PPI. DVT proph-SCDs Full Code Dispo-to med floor overnight. If subjective weakness doesn't improve with blood administration, consider PT/OT eval as patient lives alone. Fior Bennett DO [facility]ist Level of Care Med/Surg Resuscitation Status FULL RESUSCITATION VTE Prophylaxis VTE Risk Assessment Done? Y/N: Yes Risk Level: Moderate Given or contraindicated: SCD's, Contraindicated
--- NOTE | 2017-01-12 17:01 | Gastrointestinal Consultation ---
Gastrointestinal Consultation Date of Consultation: Jan 12, 2017 Attending Physician: Fior Bennett Consulting Physician: Marco Hudson Reason for Consultation: Iron deficiency anemia History of Present Illness Patient is a 66 year old female who is seen as a consult for iron deficiency anemia. Her baseline Hgb in 2014 was 12, recently in past 1/2 year dropped to 10 , then 8 on recent CBC done in outpt setting. Fe, Ferritin low in recent iron panel, and she was started on Ferrous Sulfate 325mg BID. She's had s/s of weakness, muscle aches, increasing SOB for a few months but denies CP, light headedness/dizziness, abd pain, black/tarry stools. Does have reflux controlled w Prilosec 20mg daily, and mild nausea but no vomiting. Denies any hematuria, large areas of bruising on body or vaginal bleeding. FOBT in outpt setting negative. She had hx of Hyplori in 2007, but repeat Hpylori stool Ag recently negative. She also noticed eating more ice and rice recently. She is not a vegetarian. Admission labs showed Hgb around 8, no coagulopathy, otherwise normal CMP and Troponin. CXR grossly normal. Last colonoscopy in 2007 w findings of hemorrhoids otherwise negative. Last EGD in 2014 grossly normal. Denies any family hx of colon ca and IBD. Denies regular uses of ASA or NSAIDs Past Medical/Surgical History Medical Problems: (1) Abnormal EKG Status: Acute (2) Left sided chest pain Status: Acute Past Medical History: Hx of asthma, GERD, anxiety Past Surgical History: Knee surgery Family History FH: Alzheimers disease FATHER FH: CAD (coronary artery disease) MOTHER Hypertension Kidney stone Social History Smoking Status: Never Smoker Alcohol Use: none Drug Use: none Marital Status: single Occupation Status: unemployed Allergies Coded Allergies: Celecoxib (Unverified Allergy, Mild, 01/12/17) Current Medications Home Meds and Scripts Medications Dose Route/Sig Max Daily Dose Days Date Category Fluticasone Propionate 120 Sprays/6000 Mcg Inha 1 [place] INH UD PRN 01/12/17 Reported Ventolin Hfa (Albuterol) 200 Puffs/58084 Mcg Aers 1-2 Puffs INH PRN 01/12/17 Reported Prilosec (Omeprazole) 20 Mg Capcr 20 Mg PO QAM 07/25/16 Reported Review of Systems Constitutional: + weakness, No fever, No chills Respiratory: + cough (mild), + shortness of breath, No wheezing Abdomen: + nausea, No pain, No vomiting, No GI bleeding Musculoskeletal: + muscle pain Heme: No abnormal bleeding/bruising Endo: + fatigue Skin: No rash, No itch, No jaundice Physical Exam Date Time Temp Pulse Resp B/P (MAP) Pulse Ox O2 Delivery O2 Flow Rate FiO2 01/12/17 15:45 98 Room Air 01/12/17 15:35 36.5 77 18 144/78 98 01/12/17 15:05 36.9 83 18 144/78 98 01/12/17 14:45 36.6 81 20 149/68 96 01/12/17 14:25 96 Room Air 01/12/17 12:22 36.9 84 18 136/80 96 01/12/17 10:42 96 01/12/17 10:25 36.5 96 16 152/90 96 Room Air General Appearance: WD/WN, no apparent distress Eyes: normal inspection, PERRL, EOMI Neck: supple, no JVD, trachea midline Respiratory/Chest: no respiratory distress, no accessory muscle use, + rhonchi (bilateral bases) Cardiovascular: regular rate, rhythm, no gallop, no murmur Abdomen: normal bowel sounds, non tender, soft Extremities: normal inspection, no pedal edema, no calf tenderness Neurologic/Psych: alert, normal mood/affect, oriented x 3 Skin: normal color, no jaundice, no rash Laboratory Results Last 24 Hours Test 01/12/17 10:55 01/12/17 11:20 White Blood Count 6.16 K/uL Red Blood Count 3.94 M/uL Hemoglobin 8.3 g/dL Hematocrit 27.1 % Mean Corpuscular Volume 68.8 fL Mean Corpuscular Hemoglobin 21.1 pg Mean Corpuscular Hemoglobin Concent 30.6 g/dl Platelet Count 341 K/uL Mean Platelet Volume 8.7 fL Neutrophils (%) (Auto) 60.6 % Lymphocytes (%) (Auto) 30.8 % Monocytes (%) (Auto) 7.0 % Eosinophils (%) (Auto) 1.1 % Basophils (%) (Auto) 0.2 % Neutrophils # (Auto) 3.73 K/uL Lymphocytes # (Auto) 1.90 K/uL Monocytes # (Auto) 0.43 K/uL Eosinophils # (Auto) 0.07 K/uL Basophils # (Auto) 0.01 K/uL RDW Standard Deviation 43.9 fL RDW Coefficient of Variation 17.3 % Immature Granulocyte % (Auto) 0.3 % Immature Granulocyte # (Auto) 0.02 K/uL Anisocytosis PRESENT Microcytosis PRESENT Prothrombin Time 10.4 SECONDS Prothromb Time International Ratio 1.0 Activated Partial Thromboplast Time 25.4 SECONDS Partial Thromboplastin Ratio 1.0 Sodium Level 140 mmol/L Potassium Level 3.6 mmol/L Chloride Level 107 mmol/L Carbon Dioxide Level 27 mmol/L Anion Gap 6.0 mmol/L Blood Urea Nitrogen 9 mg/dl Creatinine 0.83 mg/dl Est Creatinine Clear Calc Drug Dose 73.0 ml/min Estimated GFR () 85.2 Estimated GFR (Non- 73.5 BUN/Creatinine Ratio 11.1 Random Glucose 112 mg/dl Calcium Level 9.1 mg/dl Total Bilirubin 0.2 mg/dl Direct Bilirubin < 0.1 mg/dl Aspartate Amino Transf (AST/SGOT) 15 U/L Alanine Aminotransferase (ALT/SGPT) 16 U/L Alkaline Phosphatase 115 U/L Total Protein 7.4 gm/dl Albumin 2.8 gm/dl Bedside Troponin I < 0.030 ng/ml Impression Patient is a 66 year old female admitted w symptomatic iron deficiency anemia. No lara s/s of GI bleeding, outpt FOBT negative, recent Hpylori Ag stool also negative (hx of infection in 2007). Suspect nutritional deficiency ? PICA syndrome given increased intake of ice, rice mainly. Other DDX: PUD, GI malignancy. Plan - Agree w blood transfusion, monitor H/H - Resume iron supplementation - Protonix 40mg BID - If still inpt by Sunday will plan on EGD/colonoscopy eval on 01/[address] Roman. Keep NPO after midnight on Sunday and bowel prep already order. - If DC'd over weekend, will plan on outpt EGD/colonoscopy. Previously scheduled in February but we can reschedule to be done within 1-2 weeks.
[2017-01-12] MEDS: FERROUS SULFATE 325 MG TAB PO SCH (18:25)
--- NOTE | 2017-01-12 18:35 | EMERGENCY ROOM VISIT NOTE ---
History Report prepared by Gilberto: Vanna Spencer Under the Supervision of: Dr. Silvio Fernandez M.D. First contact with patient: 11:02 Chief Complaint: SHORTNESS OF BREATH Stated Complaint: SOB, LIGHTHEADED, ANEMIA Nursing Triage Summary: pt to the ED with c/o SOB dry cough and a BALLARD, pt is not coughing up anything History of Present Illness The patient is a 66 year old female who presents to the Emergency Room with complaints of shortness of breath that worsened today. The patient reports that she has had this shortness of breath and generalized weakness for approximately a year. The patient had blood work done yesterday and was told her hemoglobin was 8.5. She also had blood work done a week and a half ago and her hemoglobin then was 8.7. . The patient reports that she was sent here for a possible blood transfusion. She also states that she has felt weak. The patient denies having any chest pain. She denies any black or bloody stools. She said last night she had trouble sleeping. Source of History: patient Onset: today Position: other (global) Quality: other (shortness of breath ) Timing: worsening Associated Symptoms: + weakness, No chest pain Review of Systems See HPI for pertinent positives & negatives. A total of 10 systems reviewed and were otherwise negative. Past Medical & Surgical Medical Problems: (1) Anemia (2) Anxiety State Nos (3) Asthma (4) Choking episode occurring at night (5) GERD (gastroesophageal reflux disease) (6) Symptomatic anemia Surgical Problems: (1) H/O colonoscopy (2) H/O knee surgery (3) History of esophagogastroduodenoscopy (EGD) Family History Hypertension Kidney stone Social History Smoking Status: Never Smoker Alcohol Use: none Drug Use: none Marital Status: single Occupation Status: unemployed Current/Historical Medications Scheduled Omeprazole (Prilosec), 20 MG PO QAM Scheduled PRN Albuterol Hfa (Ventolin Hfa), 1-2 PUFFS INH for SOB/Wheezing Fluticasone Propionate (Fluticasone Propionate), 1 SPRAY INH UD PRN for DRYNESS Allergies Coded Allergies: Celecoxib (Unverified Allergy, Mild, 01/12/17) Physical Exam Vital Signs Date Time Temp Pulse Resp B/P (MAP) Pulse Ox O2 Delivery O2 Flow Rate FiO2 01/12/17 12:22 36.9 84 18 136/80 96 01/12/17 10:42 96 01/12/17 10:25 36.5 96 16 152/90 96 Room Air Physical Exam Constitutional: Vital signs reviewed. Eyes: Pupils are equal round reactive to light. Conjunctiva are noninjected. ENT: Pharynx is clear without erythema or exudate. Mucous membranes are moist. Neck supple without meningeal signs. Respiratory: Clear to auscultation bilaterally. Breath sounds are equal bilaterally. Cardiovascular: Regular rate and rhythm. No rubs or gallops. GI: Soft, nondistended and nontender. Bowel sounds are present. Musculoskeletal: No peripheral edema. No lower extremity tenderness. Integumentary: No cyanosis. Neurological: The patient is awake and alert. No focal deficits. Psychiatric: Normal affect. Medical Decision & Procedures ER Provider Diagnostic Interpretation: X-ray results as stated below per interpretation by me and the radiologist: CHEST 2 VIEWS ROUTINE HISTORY: 66 years-old Female acute shortness of breath and lightheadedness. COMPARISON: Chest radiograph and chest CT 07/25/2016 TECHNIQUE: Frontal and lateral views of the chest FINDINGS: Small hiatal hernia with partially intrathoracic stomach is redemonstrated. Cardiac silhouette is within normal limits. There is atherosclerosis of the aorta. No pneumothorax, pleural effusion or focal airspace consolidation. The bones are grossly intact. There is mild convex left curvature of the lumbar spine. Multilevel endplate spurring is seen throughout the spine as well. IMPRESSION: 1. No acute cardiopulmonary process. No evidence of focal pneumonia. 2. Small hiatal hernia with partially intrathoracic stomach redemonstrated. The above report was generated using voice recognition software. It may contain grammatical, syntax or spelling errors. Electronically signed by: Ajay Echavarria M.D. 01/12/2017 11:52 AM Dictated Date/Time: 01/12/2017 11:50 AM Laboratory Results 01/12/17 10:55 Red Blood Count 3.94, Mean Corpuscular Volume 68.8, Mean Corpuscular Hemoglobin 21.1, Mean Corpuscular Hemoglobin Concent 30.6, Mean Platelet Volume 8.7, Neutrophils (%) (Auto) 60.6, Lymphocytes (%) (Auto) 30.8, Monocytes (%) (Auto) 7.0, Eosinophils (%) (Auto) 1.1, Basophils (%) (Auto) 0.2, Neutrophils # (Auto) 3.73, Lymphocytes # (Auto) 1.90, Monocytes # (Auto) 0.43, Eosinophils # (Auto) 0.07, Basophils # (Auto) 0.01 01/12/17 10:55 Test 01/12/17 10:55 01/12/17 11:20 White Blood Count 6.16 K/uL (4.8-10.8) Red Blood Count 3.94 M/uL (4.2-5.4) Hemoglobin 8.3 g/dL (12.0-16.0) Hematocrit 27.1 % (37-47) Mean Corpuscular Volume 68.8 fL (80-100) Mean Corpuscular Hemoglobin 21.1 pg (25-34) Mean Corpuscular Hemoglobin Concent 30.6 g/dl (32-36) Platelet Count 341 K/uL (130-400) Mean Platelet Volume 8.7 fL (7.4-10.4) Neutrophils (%) (Auto) 60.6 % Lymphocytes (%) (Auto) 30.8 % Monocytes (%) (Auto) 7.0 % Eosinophils (%) (Auto) 1.1 % Basophils (%) (Auto) 0.2 % Neutrophils # (Auto) 3.73 K/uL (1.4-6.5) Lymphocytes # (Auto) 1.90 K/uL (1.2-3.4) Monocytes # (Auto) 0.43 K/uL (0.11-0.59) Eosinophils # (Auto) 0.07 K/uL (0-0.5) Basophils # (Auto) 0.01 K/uL (0-0.2) RDW Standard Deviation 43.9 fL (36.4-46.3) RDW Coefficient of Variation 17.3 % (11.5-14.5) Immature Granulocyte % (Auto) 0.3 % Immature Granulocyte # (Auto) 0.02 K/uL (0.00-0.02) Anisocytosis PRESENT Microcytosis PRESENT Prothrombin Time 10.4 SECONDS (9.0-12.0) Prothromb Time International Ratio 1.0 (0.9-1.1) Activated Partial Thromboplast Time 25.4 SECONDS (21.0-31.0) Partial Thromboplastin Ratio 1.0 Anion Gap 6.0 mmol/L (3-11) Est Creatinine Clear Calc Drug Dose 73.0 ml/min Estimated GFR () 85.2 Estimated GFR (Non- 73.5 BUN/Creatinine Ratio 11.1 (10-20) Calcium Level 9.1 mg/dl (8.5-10.1) Total Bilirubin 0.2 mg/dl (0.2-1) Direct Bilirubin < 0.1 mg/dl (0-0.2) Aspartate Amino Transf (AST/SGOT) 15 U/L (15-37) Alanine Aminotransferase (ALT/SGPT) 16 U/L (12-78) Alkaline Phosphatase 115 U/L (45-117) Total Protein 7.4 gm/dl (6.4-8.2) Albumin 2.8 gm/dl (3.4-5.0) Bedside Troponin I < 0.030 ng/ml (0-0.045) Laboratory results as reviewed by me. Medications Administered Medications (Trade) Dose Ordered Sig/[place] Route Start Time Stop Time Status Last Admin Dose Admin Pantoprazole Sodium 40 mg/ Syringe 10 ml @ 5 mls/min NOW ONCE IV 01/12/17 14:15 01/12/17 14:16 DC 01/12/17 14:26 5 MLS/MIN ECG Indication: SOB/dyspnea Rate (beats per minute): 92 Rhythm: normal sinus Findings: no acute ischemic change, no ectopy, other (some flattening of t waves in leads IV-) ED Course 1105: The patient was evaluated in room C6. A complete history and physical exam was performed. 1205. I talked to the patient about possible treatment plans. Her POC Troponin is 0. 1220: I obtained written and verbal consent for transfusion. 1232: I spoke with KALINA Kovacs of [facility]. We discussed the patient and her results. 1300: I spoke with Dr. Brunson of [facility]. We discussed the patient and her results. The patient will be further evaluated by Dr. Brunson. Dr. Brunson would like the patient hospitalized for transfusion. Medical Decision This is a 66-year-old female presents with anemia and shortness of breath. I did perform a limited focused review of portions of the patient's old chart on the electronic medical record. The patient was admitted in July for chest pain, had a negative dobutamine stress test, and no evidence of a pulmonary embolism on her chest CT. I did evaluate the patient as noted above. IV access was established. The patient was placed on a continuous embedded linux engineer. I did order and personally review the patient's 12-lead EKG and chest x-ray as described above. I did order and review the patient's blood work as noted in the electronic medical record. She is anemic. I did discuss the test results with the patient. She states that she had an increase in her symptoms since yesterday. She said she had increased trouble breathing. I did obtain consent for transfusion. She was concerned about the transfusion and so I discussed the case with Dr. Brunson. I spoke to her PCP and the patient also spiked her and it was decided that she would be hospitalized for transfusion. I did order 1 unit of packed RBCs after discussing risks and benefits with her. While in the emergency department she developed some transient chest pain. A repeat EKG was obtained and per my interpretation shows no acute ischemic changes. She was in sinus rhythm. Her chest pain resolved. Troponin was 0. I did discuss case with the hospitalist and correctional case manager. Medication Reconcilliation Current Medication List: was personally reviewed by me Blood Pressure Screening Patient's blood pressure: Elevated blood pressure Consults Time Called: 1200 Consulting Physician: Mini Perez Returned Call: 1232 I spoke with KALINA Kovacs of [facility]. We discussed the patient and her results. Additional Consults: Time Called: 1230 Consulted Physician: Dr. Brunson Returned Call: 1300 Additional Comments: I spoke with Dr. Brunson of [facility]. We discussed the patient and her results. The patient will be further evaluated by Dr. Brunson. Dr. Brunson would like the patient hospitalized for transfusion. Impression Primary Impression: Symptomatic anemia Additional Impression: Acute chest pain Scribe Attestation The scribe's documentation has been prepared under my direct and personally reviewed by me in its entirety. I confirm that the note above accurately reflects all work, treatment, procedures, and medical decision making performed by me. Departure Information Dispostion Being Evaluated By Hospitalist Referrals Ciarra Brunson DO (PCP) Patient Instructions My [facility] Problem Qualifiers
[2017-01-12] MEDS: PANTOprazole SOD 40 MG TAB PO SCH (21:19)
[2017-01-13 06:37] LABS: HEMATOCRIT 31.2 % (37-47); MEAN CELL VOLUME 70.1 fL (80-100); MEAN CORPUSCULAR HEMOGLOBIN 21.1 pg (25-34); MEAN CORPUSCULAR HGB CONC 30.1 g/dl (32-36); MEAN PLATELET VOLUME 8.8 fL (7.4-10.4); PLATELET COUNT 313 K/uL (130-400); RED BLOOD COUNT 4.45 M/uL (4.2-5.4); WHITE BLOOD COUNT 7.59 K/uL (4.8-10.8)
[2017-01-13 07:24] LABS: BUN/CREATININE RATIO 10.6 (10-20); CALCIUM 8.8 mg/dl (8.5-10.1); CREATININE 0.9 mg/dl (0.60-1.20); POTASSIUM 3.9 mmol/L (3.5-5.1)
[2017-01-13 07:28] VITALS: BP 141/85; PULSE 65; TEMP 36.5; O2SAT 97
[2017-01-13] MEDS: FERROUS SULFATE 325 MG TAB PO SCH ×2 (07:37→16:46)
[2017-01-13] MEDS: PANTOprazole SOD 40 MG TAB PO SCH ×2 (07:37→20:36)
--- NOTE | 2017-01-13 13:15 | Progress Note ---
Medicine Progress Note Date & Time of Visit: Jan 13, 2017 at 12:57. Subjective tolerating PO symptoms from yesterday have improved and she feels much better she has lots of questions about anemia and the source of hers. she is anxious about what is going on and prefers to stay for the scope on Mon she is uncertain if she can wait 1-2 weeks as outpatient because she is concerned she will start to feel badly at home again and she lives alone. denies SOB, chest pain, abdominal pain at this time. Objective Last 8 Hrs Date Time Temp Pulse Resp B/P (MAP) Pulse Ox O2 Delivery O2 Flow Rate FiO2 01/13/17 08:00 Room Air 01/13/17 07:28 36.5 65 18 141/85 (103) 97 Room Air Physical Exam: GEN: WNWD, in no acute distress, alert and appropriate HEENT: NC/AT, normal sclerae, MMM CARDIO: reg rate, S1/2 heard without m/g/r LUNGS: CTA bilaterally, no crackles, rales or wheezes, good diaphragmatic excursion ABD: soft, non-tender, non-distended, no rebound or guarding, +BS EXTREMITY: RP and DP palpable 2+ bilat, no LE swelling or edema, extremities are warm and well-perfused NEURO: CN 2-12 grossly intact, no gross focal deficits. MUSC: moves around the bed with ease SKIN: warm and dry Laboratory Results: 01/13/17 06:13 01/13/17 06:13 Test 01/12/17 10:55 01/12/17 11:20 01/13/17 06:13 Immature Granulocyte % (Auto) 0.3 % White Blood Count 6.16 K/uL (4.8-10.8) Red Blood Count 3.94 M/uL (4.2-5.4) 4.45 M/uL (4.2-5.4) Hemoglobin 8.3 g/dL (12.0-16.0) Hematocrit 27.1 % (37-47) Mean Corpuscular Volume 68.8 fL (80-100) 70.1 fL (80-100) Mean Corpuscular Hemoglobin 21.1 pg (25-34) 21.1 pg (25-34) Mean Corpuscular Hemoglobin Concent 30.6 g/dl (32-36) 30.1 g/dl (32-36) Platelet Count 341 K/uL (130-400) Mean Platelet Volume 8.7 fL (7.4-10.4) 8.8 fL (7.4-10.4) Neutrophils (%) (Auto) 60.6 % Lymphocytes (%) (Auto) 30.8 % Monocytes (%) (Auto) 7.0 % Eosinophils (%) (Auto) 1.1 % Basophils (%) (Auto) 0.2 % Neutrophils # (Auto) 3.73 K/uL (1.4-6.5) Lymphocytes # (Auto) 1.90 K/uL (1.2-3.4) Monocytes # (Auto) 0.43 K/uL (0.11-0.59) Eosinophils # (Auto) 0.07 K/uL (0-0.5) Basophils # (Auto) 0.01 K/uL (0-0.2) Immature Granulocyte # (Auto) 0.02 K/uL (0.00-0.02) Anisocytosis PRESENT Microcytosis PRESENT Prothrombin Time 10.4 SECONDS (9.0-12.0) Prothromb Time International Ratio 1.0 (0.9-1.1) Activated Partial Thromboplast Time 25.4 SECONDS (21.0-31.0) Partial Thromboplastin Ratio 1.0 Total Bilirubin 0.2 mg/dl (0.2-1) Direct Bilirubin < 0.1 mg/dl (0-0.2) Aspartate Amino Transf (AST/SGOT) 15 U/L (15-37) Alanine Aminotransferase (ALT/SGPT) 16 U/L (12-78) Alkaline Phosphatase 115 U/L (45-117) Total Protein 7.4 gm/dl (6.4-8.2) Albumin 2.8 gm/dl (3.4-5.0) Bedside Troponin I < 0.030 ng/ml (0-0.045) RDW Standard Deviation 45.8 fL (36.4-46.3) RDW Coefficient of Variation 17.8 % (11.5-14.5) Anion Gap 6.0 mmol/L (3-11) Est Creatinine Clear Calc Drug Dose 67.4 ml/min Estimated GFR () 77.2 Estimated GFR (Non- 66.6 BUN/Creatinine Ratio 10.6 (10-20) Calcium Level 8.8 mg/dl (8.5-10.1) Last 24 Hours Test 01/13/17 06:13 White Blood Count 7.59 K/uL Red Blood Count 4.45 M/uL Hemoglobin 9.4 g/dL Hematocrit 31.2 % Mean Corpuscular Volume 70.1 fL Mean Corpuscular Hemoglobin 21.1 pg Mean Corpuscular Hemoglobin Concent 30.1 g/dl RDW Standard Deviation 45.8 fL RDW Coefficient of Variation 17.8 % Platelet Count 313 K/uL Mean Platelet Volume 8.8 fL Sodium Level 140 mmol/L Potassium Level 3.9 mmol/L Chloride Level 106 mmol/L Carbon Dioxide Level 28 mmol/L Anion Gap 6.0 mmol/L Blood Urea Nitrogen 10 mg/dl Creatinine 0.90 mg/dl Est Creatinine Clear Calc Drug Dose 67.4 ml/min Estimated GFR () 77.2 Estimated GFR (Non- 66.6 BUN/Creatinine Ratio 10.6 Random Glucose 96 mg/dl Calcium Level 8.8 mg/dl Assessment & Plan 66 yo F presents with symptomatic anemia 1. Symptomatic anemia-symptoms from yesterday including lightheadedness, SOB, leg cramps, and nausea have improved after blood administration. Denies NSAID use at home, no h/o steroids and no h/o alcohol use. Has h/o H pylori in the past. Last EGD 2013 which was normal as above. Has PICA and severe iron deficiency. Protonix 40 BID started. Pt feels uncomfortable going home and would like to stay to expedite her workup with endoscopy on Sun. 2. Asthma-stable, controlled with PRN albuterol. 3. Anxiety-not on medications for this 4. Obesity 5. Hiatal hernia and severe GERD-cont PPI, reports intermittent dysphagia. Defer to GI team on sun. DVT proph-SCDs, will hold chemoprophylaxis in setting of severe iron def anemia requiring transfusion, also pt is ambulatory. Full Code Dispo-some improvement of weakness, but as patient lives alone, will order PT/ OT evals on her. Will be here until endoscopy on Sunday. Fior Bennett DO [facility] Hospitalist Current Inpatient Medications: Current Inpatient Medications Medications (Trade) Dose Ordered Sig/Eldon Route Start Time Stop Time Status Last Admin Dose Admin Acetaminophen (Tylenol Tab) 650 mg Q4H PRN PO 01/12/17 14:00 02/11/17 13:59 01/12/17 19:17 650 MG Ondansetron HCl (Zofran Inj) 4 mg Q6H PRN IV 01/12/17 14:00 02/11/17 13:59 Albuterol (Ventolin Hfa Inhaler) 2 puffs Q6H PRN INH 01/12/17 14:15 02/11/17 14:14 Pantoprazole Sodium (Protonix Tab) 40 mg BID PO 01/12/17 21:00 02/11/17 20:59 01/13/17 07:37 40 MG Miscellaneous (Iv Fluids Completed) 1 ea PRN PRN N/A 01/12/17 14:15 01/12/18 14:14 Polyethylene (Miralax Powder Packet) 119 gm ONE ONCE PO 01/14/17 17:00 01/14/17 17:01 Polyethylene (Miralax Powder Packet) 119 gm ONE ONCE PO 01/14/17 21:00 01/14/17 21:01 Bisacodyl (Dulcolax Tab) 20 mg ONE ONCE PO 01/14/17 17:00 01/14/17 17:01 Ferrous Sulfate (Feosol Tab) 325 mg BIDM PO 01/12/17 17:45 02/11/17 17:44 01/13/17 07:37 325 MG
[2017-01-13 15:21] VITALS: BP 157/80; PULSE 80; TEMP 36.5; O2SAT 96
[2017-01-13 20:17] VITALS: BP 158/68; PULSE 92; TEMP 36.7; O2SAT 95
[2017-01-14] VITALS (7 sets, daily range): BP systolic 124–164; BP diastolic 67–91; PULSE 72–99; TEMP 36.4–37.2; O2SAT 93–99
--- NOTE | 2017-01-14 07:39 | Progress Note ---
Progress Note Date of Service Jan 14, 2017. Progress Note Patient will have EGD and colonoscopy tomorrow. Prep orders already in system.
[2017-01-14 07:47] LABS: HEMATOCRIT 31.6 % (37-47); MEAN CELL VOLUME 69.9 fL (80-100); MEAN CORPUSCULAR HEMOGLOBIN 20.8 pg (25-34); MEAN CORPUSCULAR HGB CONC 29.7 g/dl (32-36); MEAN PLATELET VOLUME 8.7 fL (7.4-10.4); PLATELET COUNT 333 K/uL (130-400); RED BLOOD COUNT 4.52 M/uL (4.2-5.4); WHITE BLOOD COUNT 8.37 K/uL (4.8-10.8)
[2017-01-14] MEDS: PANTOprazole SOD 40 MG TAB PO SCH ×2 (08:14→21:22)
[2017-01-14] MEDS: FERROUS SULFATE 325 MG TAB PO SCH ×2 (08:14→16:43)
[2017-01-14] MEDS ORDERED: ARTIFICIAL TEARS OP SOLN OP PRN ×2 (09:45)
[2017-01-14] MEDS ORDERED: CLONAZEPAM 0.5 MG TAB PO ONE (10:00)
[2017-01-14] MEDS: ACETAMINOPHEN 500 MG TAB PO SCH ×3 (10:53→21:24)
[2017-01-14] MEDS ORDERED: BISACODYL 5 MG TABEC PO ONE (17:00)
[2017-01-14] MEDS ORDERED: POLYETHYLENE (MIRALAX) 17 GM PACK PO ONE ×2 (17:00→21:00)
--- NOTE | 2017-01-14 23:03 | Progress Note ---
Medicine Progress Note Date & Time of Visit: Jan 14, 2017 at 10:24. Subjective tolerating PO no abdominal pain no bleeding no lightheadedness, cp or SOB. Objective Last 8 Hrs Date Time Temp Pulse Resp B/P (MAP) Pulse Ox O2 Delivery O2 Flow Rate FiO2 01/14/17 07:36 36.6 80 18 124/76 (92) 93 01/14/17 04:13 36.4 72 16 156/67 (96) 98 Room Air Physical Exam: GEN: WNWD, in no acute distress, alert and appropriate HEENT: NC/AT, normal sclerae, MMM CARDIO: reg rate, S1/2 heard without m/g/r LUNGS: CTA bilaterally, no crackles, rales or wheezes, good diaphragmatic excursion ABD: soft, non-tender, non-distended, no rebound or guarding, +BS EXTREMITY: RP and DP palpable 2+ bilat, no LE swelling or edema, extremities are warm and well-perfused NEURO: CN 2-12 grossly intact, no gross focal deficits. MUSC: moves around the bed with ease SKIN: warm and dry Laboratory Results: 01/14/17 07:29 01/13/17 06:13 Test 01/12/17 10:55 01/12/17 11:20 01/13/17 06:13 01/14/17 07:29 Immature Granulocyte % (Auto) 0.3 % White Blood Count 6.16 K/uL (4.8-10.8) Red Blood Count 3.94 M/uL (4.2-5.4) 4.52 M/uL (4.2-5.4) Hemoglobin 8.3 g/dL (12.0-16.0) Hematocrit 27.1 % (37-47) Mean Corpuscular Volume 68.8 fL (80-100) 69.9 fL (80-100) Mean Corpuscular Hemoglobin 21.1 pg (25-34) 20.8 pg (25-34) Mean Corpuscular Hemoglobin Concent 30.6 g/dl (32-36) 29.7 g/dl (32-36) Platelet Count 341 K/uL (130-400) Mean Platelet Volume 8.7 fL (7.4-10.4) 8.7 fL (7.4-10.4) Neutrophils (%) (Auto) 60.6 % Lymphocytes (%) (Auto) 30.8 % Monocytes (%) (Auto) 7.0 % Eosinophils (%) (Auto) 1.1 % Basophils (%) (Auto) 0.2 % Neutrophils # (Auto) 3.73 K/uL (1.4-6.5) Lymphocytes # (Auto) 1.90 K/uL (1.2-3.4) Monocytes # (Auto) 0.43 K/uL (0.11-0.59) Eosinophils # (Auto) 0.07 K/uL (0-0.5) Basophils # (Auto) 0.01 K/uL (0-0.2) Immature Granulocyte # (Auto) 0.02 K/uL (0.00-0.02) Anisocytosis PRESENT Microcytosis PRESENT Prothrombin Time 10.4 SECONDS (9.0-12.0) Prothromb Time International Ratio 1.0 (0.9-1.1) Activated Partial Thromboplast Time 25.4 SECONDS (21.0-31.0) Partial Thromboplastin Ratio 1.0 Total Bilirubin 0.2 mg/dl (0.2-1) Direct Bilirubin < 0.1 mg/dl (0-0.2) Aspartate Amino Transf (AST/SGOT) 15 U/L (15-37) Alanine Aminotransferase (ALT/SGPT) 16 U/L (12-78) Alkaline Phosphatase 115 U/L (45-117) Total Protein 7.4 gm/dl (6.4-8.2) Albumin 2.8 gm/dl (3.4-5.0) Bedside Troponin I < 0.030 ng/ml (0-0.045) Anion Gap 6.0 mmol/L (3-11) Est Creatinine Clear Calc Drug Dose 67.4 ml/min Estimated GFR () 77.2 Estimated GFR (Non- 66.6 BUN/Creatinine Ratio 10.6 (10-20) Calcium Level 8.8 mg/dl (8.5-10.1) RDW Standard Deviation 45.4 fL (36.4-46.3) RDW Coefficient of Variation 17.9 % (11.5-14.5) Last 24 Hours Test 01/14/17 07:29 White Blood Count 8.37 K/uL Red Blood Count 4.52 M/uL Hemoglobin 9.4 g/dL Hematocrit 31.6 % Mean Corpuscular Volume 69.9 fL Mean Corpuscular Hemoglobin 20.8 pg Mean Corpuscular Hemoglobin Concent 29.7 g/dl RDW Standard Deviation 45.4 fL RDW Coefficient of Variation 17.9 % Platelet Count 333 K/uL Mean Platelet Volume 8.7 fL Assessment & Plan 66 yo F presents with symptomatic anemia 1. Symptomatic anemia-asymptomatic today with H/H stable. Denies NSAID use at home, no h/o steroids and no h/o alcohol use. Has h/o H pylori in the past. Last EGD 2013 which was normal as above. Has PICA and severe iron deficiency. Protonix 40 BID started. Pt feels uncomfortable going home and would like to stay to expedite her workup with endoscopy on Mon. EGD and colonoscopy planned for am. Prep ordered for tonight. 2. Asthma-stable, controlled with PRN albuterol. 3. Anxiety-not on medications for this 4. Obesity 5. Hiatal hernia and severe GERD-cont PPI, reports intermittent dysphagia. Defer to GI team on mon. DVT proph-SCDs, will hold chemoprophylaxis in setting of severe iron def anemia requiring transfusion, also pt is ambulatory. Full Code Dispo-likely home after endoscopy tomorrow depending on findings. DO [facility] Consultants: GI Current Inpatient Medications: Current Inpatient Medications Medications (Trade) Dose Ordered Sig/E[place] Route Start Time Stop Time Status Last Admin Dose Admin Acetaminophen (Tylenol Tab) 650 mg Q4H PRN PO 01/12/17 14:00 02/11/17 13:59 Future Hold 01/12/17 19:17 650 MG Ondansetron HCl (Zofran Inj) 4 mg Q6H PRN IV 01/12/17 14:00 02/11/17 13:59 Albuterol (Ventolin Hfa Inhaler) 2 puffs Q6H PRN INH 01/12/17 14:15 02/11/17 14:14 Pantoprazole Sodium (Protonix Tab) 40 mg BID PO 01/12/17 21:00 02/11/17 20:59 01/14/17 08:14 40 MG Miscellaneous (Iv Fluids Completed) 1 ea PRN PRN N/A 01/12/17 14:15 01/12/18 14:14 Polyethylene (Miralax Powder Packet) 119 gm ONE ONCE PO 01/14/17 17:00 01/14/17 17:01 Polyethylene (Miralax Powder Packet) 119 gm ONE ONCE PO 01/14/17 21:00 01/14/17 21:01 Bisacodyl (Dulcolax Tab) 20 mg ONE ONCE PO 01/14/17 17:00 01/14/17 17:01 Ferrous Sulfate (Feosol Tab) 325 mg BIDM PO 01/12/17 17:45 02/11/17 17:44 01/14/17 08:14 325 MG Acetaminophen (Tylenol Tab) 1,000 mg Q8 PO 01/14/17 10:00 02/13/17 09:59 Artificial Tears (Artificial Tears) 2 drops Q4H PRN OP 01/14/17 09:45 02/13/17 09:44
[2017-01-15 05:47] LABS: HEMATOCRIT 31.5 % (37-47); MEAN CELL VOLUME 70.8 fL (80-100); MEAN CORPUSCULAR HEMOGLOBIN 21.1 pg (25-34); MEAN CORPUSCULAR HGB CONC 29.8 g/dl (32-36); MEAN PLATELET VOLUME 8.8 fL (7.4-10.4); PLATELET COUNT 320 K/uL (130-400); RED BLOOD COUNT 4.45 M/uL (4.2-5.4); WHITE BLOOD COUNT 8.05 K/uL (4.8-10.8)
[2017-01-15] MEDS: ACETAMINOPHEN 500 MG TAB PO SCH ×2 (06:00→12:53)
[2017-01-15 07:54] VITALS: BP 134/82; PULSE 71; TEMP 36.6; O2SAT 96
[2017-01-15] MEDS: FERROUS SULFATE 325 MG TAB PO SCH ×4 (08:36→19:07)
[2017-01-15] MEDS: PANTOprazole SOD 40 MG TAB PO SCH ×2 (08:37→12:53)
--- NOTE | 2017-01-15 11:27 | Endo History and Physical ---
History & Physical Date of Service: Jan 15, 2017. Chief Complaint: anemia Referring Physician: Dr. Roman History of Present Illness anemia Past Medical History Asthma, Anxiety, Reflux, Sleep Apnea Past Surgical History Hx Cardiac Surgery: No Hx Internal Defibrillator: No Hx Pacemaker: No Hx Abdominal Surgery: No Hx Post-Op Nausea and Vomiting: No Hx Cancer Surgery: No Hx Thoracic Surgery: No Hx Orthopedic: Yes (simple knee surgery) Hx Urinary Tract Surgery: No Social History Smoking Status: Never Smoker Smokeless Tobacco Use: No Hx Substance Use: No Hx Alcohol Use: No Allergies Coded Allergies: Celecoxib (Unverified Allergy, Mild, 01/15/17) Current Medications Reported Home Medications Medications Dose Route/Sig Max Daily Dose Days Date Category Fluticasone Propionate 120 Sprays/6000 Mcg Inha 1 [place] INH UD PRN 01/12/17 Reported Ventolin Hfa (Albuterol) 200 Puffs/66025 Mcg Aers 1-2 Puffs INH PRN 01/12/17 Reported Prilosec (Omeprazole) 20 Mg Capcr 20 Mg PO QAM 07/25/16 Reported Vital Signs Weight (Kilograms): 88.000 Height (Feet): 5 Height (Inches): 5.00 Date Time Temp Pulse Resp B/P (MAP) Pulse Ox O2 Delivery O2 Flow Rate FiO2 01/15/17 10:55 37.1 81 20 162/73 (102) 98 Room Air 01/15/17 08:50 Room Air 01/15/17 07:54 36.6 71 18 134/82 (99) 96 Room Air 01/15/17 00:05 Room Air 01/14/17 23:35 36.9 75 20 129/87 (101) 98 Room Air 01/14/17 20:05 Room Air 01/14/17 16:00 Room Air 01/14/17 15:04 37.2 94 18 129/84 (99) 97 01/14/17 12:06 99 18 143/87 (105) 99 01/14/17 11:54 80 93 Physical Exam General Appearance: WD/WN, no apparent distress Assessment and Plan anemia - EGD and colonoscopy
[2017-01-15] MEDS ORDERED: LIDOCAINE HCL 2% 2 ML VIAL (20MG/ML) ONE ×2 (11:30→12:08)
[2017-01-15] MEDS ORDERED: PROPOFOL IV EMULSION 10 MG/ML 20 ML VIAL IV ONE ×3 (11:30→12:08)
--- NOTE | 2017-01-15 12:06 | GI REPORT ---
Procedure Date: 01/15/2017 11:32 AM Procedure: Upper GI endoscopy Indications: Iron deficiency anemia Medicines: Propofol per Anesthesia Complications: No immediate complications. Estimated blood loss: None. Estimated Blood Loss: Estimated blood loss: none. Procedure: Pre-Anesthesia Assessment: - Prior to the procedure, a History and Physical was performed, and patient medications, allergies and sensitivities were reviewed. The patient's tolerance of previous anesthesia was reviewed. - The risks and benefits of the procedure and the sedation options and risks were discussed with the patient. All questions were answered and informed consent was obtained. - Patient identification and proposed procedure were verified prior to the procedure by the physician and the nurse. The procedure was verified in the pre-procedure area in the procedure room. - Mental Status Examination: alert and oriented. Airway Examination: normal oropharyngeal airway and neck mobility. Respiratory Examination: clear to auscultation. CV Examination: normal. Abdominal Examination: bowel sounds present, abdomen soft and non-tender, no masses or organomegaly noted. - ASA Grade Assessment: II - A patient with mild systemic disease. After obtaining informed consent, the endoscope was passed under direct vision. Throughout the procedure, the patient's blood pressure, pulse, and oxygen saturations were monitored continuously. The scope was introduced through the mouth, and advanced to the third part of duodenum. The upper GI endoscopy was accomplished without difficulty. The patient tolerated the procedure well. Findings: The esophagus was normal. The stomach was normal. The examined duodenum was normal. Impression: - Normal esophagus. - Normal stomach. - Normal examined duodenum. - No specimens collected. Recommendation: - Perform a colonoscopy today. Fernanda Roman D.O. Fernanda Roman, 01/15/2017 12:06:11 PM This report has been signed electronically. Note Initiated On: 01/15/2017 11:32 AM I attest to the content of the Intraoperative Record and orders documented therein, exceptions below
--- NOTE | 2017-01-15 12:10 | GI REPORT ---
Procedure Date: 01/15/2017 11:33 AM Procedure: Colonoscopy Indications: Iron deficiency anemia Medicines: Propofol per Anesthesia Complications: No immediate complications. Estimated blood loss: None. Estimated Blood Loss: Estimated blood loss: none. Procedure: Pre-Anesthesia Assessment: - Prior to the procedure, a History and Physical was performed, and patient medications, allergies and sensitivities were reviewed. The patient's tolerance of previous anesthesia was reviewed. - The risks and benefits of the procedure and the sedation options and risks were discussed with the patient. All questions were answered and informed consent was obtained. - Patient identification and proposed procedure were verified prior to the procedure by the physician and the nurse. The procedure was verified in the pre-procedure area in the procedure room. - Mental Status Examination: alert and oriented. Airway Examination: normal oropharyngeal airway and neck mobility. Respiratory Examination: clear to auscultation. CV Examination: normal. Abdominal Examination: bowel sounds present, abdomen soft and non-tender, no masses or organomegaly noted. - ASA Grade Assessment: II - A patient with mild systemic disease. After I obtained informed consent, the scope was passed under direct vision. Throughout the procedure, the patient's blood pressure, pulse, and oxygen saturations were monitored continuously. The scope was introduced through the anus and advanced to the terminal ileum. The colonoscopy was performed without difficulty. The patient tolerated the procedure well. The quality of the bowel preparation was poor. Findings: The perianal and digital rectal examinations were normal. Pertinent negatives include normal sphincter tone and no palpable rectal lesions. A moderate amount of semi-liquid stool was found in the entire colon. The entire examined colon appeared normal on direct and retroflexion views. No masses. No large polyps. Small polyps may have been obscured by stool. Impression: - Preparation of the colon was poor. - Stool in the entire examined colon. - The entire examined colon is normal on direct and retroflexion views. - No specimens collected. Recommendation: - Repeat colonoscopy at appointment to be scheduled for screening purposes. - Advance diet as tolerated. - Return patient to hospital real for possible discharge same day. Fernanda Roman D.O. Fernanda Roman DO 01/15/2017 12:10:06 PM This report has been signed electronically. Note Initiated On: 01/15/2017 11:33 AM I attest to the content of the Intraoperative Record and orders documented therein, exceptions below
--- NOTE | 2017-01-15 12:41 | Anesthesiology Progress Note ---
Anesthesia Post Op Note Date & Time Jan 15, 2017 at 12:41 Vital Signs Pain Intensity: 0.0 Vital Signs Past 12 Hours Date Time Temp Pulse Resp B/P (MAP) Pulse Ox O2 Delivery O2 Flow Rate FiO2 01/15/17 12:34 79 18 128/79 (95) 98 Room Air 01/15/17 12:19 83 18 129/65 (86) 94 Room Air 01/15/17 12:04 81 18 120/74 (89) 96 Room Air 01/15/17 10:55 37.1 81 20 162/73 (102) 98 Room Air 01/15/17 08:50 Room Air 01/15/17 07:54 36.6 71 18 134/82 (99) 96 Room Air Notes Mental Status: alert / awake / arousable, participated in evaluation Pt Amnestic to Procedure: Yes Nausea / Vomiting: adequately controlled Pain: adequately controlled Airway Patency, RR, SpO2: stable & adequate BP & HR: stable & adequate Hydration State: stable & adequate Anesthetic Complications: no major complications apparent
[2017-01-15 12:58] VITALS: BP 134/84; PULSE 69; TEMP 36.3; O2SAT 98
[2017-01-15 14:48] VITALS: BP 150/83; PULSE 79; TEMP 36.7; O2SAT 96
[2017-01-15] MEDS ORDERED: FRRS300 PO (16:43)
--- NOTE | 2017-01-15 16:48 | Discharge Instructions ---
Discharge Instructions Date of Service Jan 15, 2017. Admission Reason for Admission: Symptomatic Anemia Discharge Discharge Diagnosis / Problem: Symptomatic anemia Discharge Goals Goal(s): Prevent Disease Progression Activity Recommendations Activity Limitations: per Instructions/Follow-up section . Instructions / Follow-Up Instructions / Follow-Up Please take all mediations as instructed. Please follow-up with [facility] group as instructed. You will need to make an appointment for a repeat screening colonoscopy at that time. Your endoscopy and colonoscopy while in the hospital were normal. You have a follow-up appointment scheduled with Dr. Mcduffie on 01/19 @ 1:45pm in you primary care office for follow-up from this hospitalization. At this appointment, he will review future directions with your anemia workup which will continue as an outpatient. While hospitalized you were evaluated by the physical therapist. Outpatient physical therapy was thought to be of benefit to you for assistance with your gait which was found to be abnormal. This referral can be placed during our hospital follow-up appointment. It was a pleasure taking care of you! Call if you have any questions or problems. You can reach a [facility] hospitalist on duty at [facility] 24 hours a day by calling [phone]. Take care of yourself. Fior Bennett DO [facility] Hospitalist Current Hospital Diet Patient's current hospital diet: Regular Diet, Vegetarian Diet Discharge Diet Recommended Diet: Regular Diet, Vegetarian Diet Procedures Procedures Performed: EGD/Colonoscopy Pending Studies Studies pending at discharge: no Medical Emergencies . Who to Call and When: Medical Emergencies: If at any time you feel your situation is an emergency, please call 911 immediately. . Non-Emergent Contact Non-Emergency issues call your: Primary Care Provider . . "Provider Documentation" section prepared by Fior Bennett. . VTE Core Measure Inpt VTE Proph given/why not?: SCD's, Contraindicated
--- NOTE | 2017-01-15 16:51 | Discharge Summary ---
Discharge Summary Date of Service Jan 15, 2017. Discharge Summary Admission Date: Jan 12, 2017 at 14:18 Discharge Date: Jan 15, 2017 Discharge Disposition: Home Principal Diagnosis: symptomatic anemia 2/2 iron deficiency s/p 1 unit of pRBCs asthma-stable, controlled anxiety obesity Hiatal hernia with GERD Procedures: EGD/Colonoscopy 01/15 Vaccinations: None Consultations: GI Pending Studies/Follow-Up: see instructions below Medication Reconciliation New Medications: Ferrous Sulfate (Ferrous Sulfate) 325 Mg Tab 325 MG PO BIDM for 30 Days, #60 TAB 3 Refills Continued Medications: Albuterol Hfa (Ventolin Hfa) 200 Puffs/41992 Mcg Aers 1-2 PUFFS INH PRN for SOB/Wheezing Fluticasone Propionate (Fluticasone Propionate) 120 Sprays/6000 Mcg Inha 1 SPRAY INH UD PRN for DRYNESS Omeprazole (Prilosec) 20 Mg Capcr 20 MG PO QAM Admission Information HPI (per Admitting provider): 66 yo F with long-standing anemia symptoms, undergoing outpatient workup, who presents with worsening shortness of breath and muscle spasms in her legs as well as significant weakness. She states that she has had these symptoms for some time, including lightheadedness, but recently she became worse. Per record review her Hb trend has been 12/2014-12.5, 07/2016-10.2, 01/18-8.3. She denies any bleeding or bruising. Ferritin is very low and outpatient labwork reflects iron deficiency. She is scheduled for an outpatient endoscopy with Dr. Roman in Feb 2017, and has not taken the iron supplements as prescribed as she has been trying to eat more iron-rich foods instead. She admits to PICA symptoms including eating ice and rice recently. She admits to a h/o H pylori infection in the past. Recent H pylorii stool test was negative as outpatient. Her last UGI endoscopy was in Jun 2013 and revealed a normal esophagus, med sized HH, and erythematous mucosa in the stomach which was biopsied and was negative. She consistently takes omeprazol 20mg PO daily as outpatient for severe acid reflux. She reports symptoms of dysphagia in the past which have apparently resolved. She denies any weight loss or odynophagia. She was consented for blood in the Er and will get one unit. Otherwise, workup is negative including a normal CXR, EKG and negative troponin. ROS reveals symptoms as above and no fevers, chills, chest pain, vomiting, diarrhea, constipation, blood per rectum or vagina or bleeding/bruising. She does admit to some occasional nausea but has no pain after eating food. She also has some back pain in her upper shoulders which is intermittent with the way she is sitting today. Physical Exam (per Admitting): GEN: Obese, in no acute distress, alert and appropriate, no conversational dyspnea. HEENT: NC/AT, PERRL, normal sclerae, MMM, pharynx nonacute NECK: no LAD, trachea midline. CARDIO: reg rate, S1/2 heard without m/g/r LUNGS: CTA bilaterally, no crackles, rales or wheezes, good diaphragmatic excursion ABD: soft, non-tender, non-distended, no rebound or guarding, +BS EXTREMITY: RP and DP palpable 2+ bilat, no LE swelling or edema, extremities are warm and well-perfused NEURO: CN 2-12 grossly intact, no gross focal deficits. MUSC: 5/5 strength throughout, no focal deficits SKIN: warm and dry, pale Hospital Course 66 yo F presents with symptomatic anemia 1. Symptomatic anemia-received 1 unit of pRBCs on admission with resolution of symptoms. H/H improved from 8.3/24 to 9.3/27. She remained asymptomatic but was concerned that her blood levels may drop again at home while waiting for her scope. She denies NSAID use at home, no h/o steroids and no h/o alcohol use. Has h/o H pylori in the past. Last EGD 2013 which was normal. Has PICA and severe iron deficiency currently. Protonix 40 BID started. EGD and colonoscopy were performed on Sunday, 01/15 and were normal. Pt was changed back to once daily PPI for GERD with HH and was sent back to PCP to follow-up for continued workup for her iron deficiency anemia. On day of discharge she was afebrile and hemodynamically stable with unremarkable physical exam. She is tolerating PO s/p colonoscopy this morning and is feeling well. She was discharged in stable condition. Total time spent on discharge = 60 minutes This includes examination of the patient, discharge planning, medication reconciliation, and communication with other providers. Discharge Instructions [address] [place] [address] Discharge Medical Patient Name: Meena Porter Unit Number: [id number] Date of : 1950 Patient Status: Admitted Inpatient Attending Doctor: Fior Bennett DO DI: Medical v4 Discharge Instructions Date of Service Jan 15, 2017. Admission Reason for Admission: Symptomatic Anemia Discharge Discharge Diagnosis / Problem: Symptomatic anemia Discharge Goals Goal(s): Prevent Disease Progression Activity Recommendations Activity Limitations: per Instructions/Follow-up section . Instructions / Follow-Up Instructions / Follow-Up Please take all mediations as instructed. Please follow-up with [facility] group as instructed. You will need to make an appointment for a repeat screening colonoscopy at that time. Your endoscopy and colonoscopy while in the hospital were normal. You have a follow-up appointment scheduled with Dr. Mcduffie on 01/19 @ 1:45pm in you primary care office for follow-up from this hospitalization. At this appointment, he will review future directions with your anemia workup which will continue as an outpatient. While hospitalized you were evaluated by the physical therapist. Outpatient physical therapy was thought to be of benefit to you for assistance with your gait which was found to be abnormal. This referral can be placed during our hospital follow-up appointment. It was a pleasure taking care of you! Call if you have any questions or problems. You can reach a [facility] hospitalist on duty at [facility] 24 hours a day by calling [phone]. Take care of yourself. Fior Bennett DO [facility] Hospitalist Current Hospital Diet Patient's current hospital diet: Regular Diet, Vegetarian Diet Discharge Diet Recommended Diet: Regular Diet, Vegetarian Diet Procedures Procedures Performed: EGD/Colonoscopy Pending Studies Studies pending at discharge: no Medical Emergencies . Who to Call and When: Medical Emergencies: If at any time you feel your situation is an emergency, please call 911 immediately. . Non-Emergent Contact Non-Emergency issues call your: Primary Care Provider . . "Provider Documentation" section prepared by Fior Bennett. . VTE Core Measure Inpt VTE Proph given/why not?: SCD's, Contraindicated Additional Copies To [place] Mcduffie III, M.D.
[2017-01-15 17:00] VITALS: BP 150/83; PULSE 79; TEMP 36.7; O2SAT 96
== END 2017-01-15 20:00 | disposition home or self-care (01) | DRG 812 ==
LOC: C.EDB 10:26 → C.MED 14:18 → ENRESERV 14:40
PROVIDERS: ADMIT Hospitalist; ATTEND Hospitalist
PROC: 0DJD8ZZ Inspection of Lower Intestinal Tract, Via Natural or Artificial Opening Endoscopic (ICD-10-PCS; principal; 2017-01-15 10:52)
PROC: 0DJ08ZZ Inspection of Upper Intestinal Tract, Via Natural or Artificial Opening Endoscopic (ICD-10-PCS; principal; 2017-01-15 10:52)
DX: D64.9 Anemia, unspecified (principal); F50.89 Other specified eating disorder; F41.9 Anxiety disorder, unspecified; J45.909 Unspecified asthma, uncomplicated; K21.9 Gastro-esophageal reflux disease without esophagitis; K44.9 Diaphragmatic hernia without obstruction or gangrene